=== PATIENT | male | born 1980 | race Caucasian/White ===

== ENCOUNTER 2025-08-14 21:00 | Observation (INO) | payer BC, SELFPAY ==
[2025-08-14] VITALS (30 sets, daily range): BP systolic 131–173; BP diastolic 69–111; PULSE 71–106; RESP 8–21; TEMP 37.2; O2SAT 90–99
--- NOTE | 2025-08-14 21:15 | DI.CT_ITS ---
Exam(s) CT ABDOMEN PELVIS W EXAM: CT ABDOMEN PELVIS W CLINICAL HISTORY: suprapubic pain, hx umbilical hernia. TECHNIQUE: Imaging Protocol: Axial computed tomography images with coronal and sagittal reformatted images were created and reviewed CONTRAST MATERIAL: Intravenous: Omnipaque 350 Contrast volume:100 ml Oral: no COMPARISON: No exams were available for comparison FINDINGS: ABDOMEN and PELVIS: Lung Bases: No acute findings. Liver: Normal density. No suspicious mass. Gallbladder and biliary tract: No radiodense calculus. No wall thickening or pericholecystic fluid. No biliary dilation. Pancreas: Normal density. No abnormal calcifications or inflammatory process. No evidence of mass. Spleen: Normal. Kidneys: Normal size, contour and axis. No radiodense stones. No obstructive uropathy. No suspicious masses seen. Adrenal glands: No masses seen. Vasculature: Abdominal aorta non-dilated. Soft tissues: Small fat containing hernia just superior to the umbilicus. Bilateral fat containing inguinal hernias, right greater than left. Bladder: No gross wall thickening. No calculi.No focal mass. Bowel: Diverticulosis in the sigmoid. Marked wall thickening and inflammation. There is an adjacent collection measuring 4 x 5 x 5 cm consistent with perforation and abscess formation. The right-sided and transverse colon contains some fluid could indicate diarrhea. No obstruction. Appendix normal. Bones: Unremarkable for age. Reproductive organs: Unremarkable. Lymph nodes: Small small lymph nodes noted in the mesentery consistent with reactive lymph nodes. IMPRESSION:: Sigmoid diverticulitis with perforation and adjacent abscess collection. The preliminary [facility] report was reviewed. RADIATION DOSE DELIVERED: Total DLP DATA REPOSITORY: All CT scans at this facility are submitted to the National Radiology Data Registry (NRDR) Dose Index Registry (DIR) with the [employer] (ACR). RADIATION OPTIMIZATION: All CT scans at this facility use at least one of these dose optimization techniques: automated exposure control; mA and/or kV adjustment per patient size (includes targeted exams where dose is matched to clinical indication); or iterative reconstruction.
--- NOTE | 2025-08-14 21:24 | ED.GENADUL_ITS ---
Discharge Plan Disposition Patient Disposition: Admit to [facility] Condition: Stable Discharge Details Clinical Impression: Perforation of sigmoid colon due to diverticulitis Primary Care Provider: Briseyda Riggs ED Provider: Subha Goodwin Home Meds and New Rx's Prescriptions: No Action multivitamin Tablet 1 tab PO DAILY [facility] General Mode of arrival: ambulatory . Date/Time Provider Initiated Documentation: 08/14/25 21:01 . Limitations to Documentation: no limitations . Information obtained by: patient, family and old records reviewed . HPI Narrative: This is a 44-year-old male patient with a past medical history significant for ORA and umbilical hernia, scheduled for surgical intervention on Saturday, presenting for evaluation of abdominal pain. The patient reports that he had his preop visit with the surgery team on , has had some intermittent abdominal pain before that but on his pain became much worse. He states that it is located in the suprapubic region and does not radiate. His hernia remains easily reducible, but is uncomfortable. He has been able to pass stool but has some severe cramping pain when he strains. Has nausea but no vomiting, has taken Tylenol which takes the edge off of the pain but does not relieve it entirely. He has no personal history of abdominal surgeries, states that he is beginning to develop some mild dysuria. Denies fevers or chills, denies abdominal wall skin changes. Related Data Home Medications ?Medication ?Instructions ?Recorded ?Confirmed multivitamin 1 tab PO DAILY 08/12/2507/20 Allergies Allergy/AdvReac Type Severity Reaction Status Date / Time No Known Allergies Allergy Verified 08/14/25 21:05 General Stated Complaint: Abd Prob DEVIKA: 3 Exam Narrative Exam Narrative: Gen: Awake and alert, in no apparent distress HEENT: Non-icteric sclera Neck: Supple Lungs: No apparent respiratory distress, normal respiratory effort. CV: Appears well perfused, heart with regular rate and rhythm, strong distal pulses Abdomen: Non-distended, soft, tender to palpation in the suprapubic region, though not significantly worsened with palpation. No rigidity, rebound, or guarding. The umbilical hernia is currently reduced, no overlying skin changes, mildly tender to palpation MSK: Moves 4 extremities without apparent limitation in ROM Skin: Visualized skin without rashes, cyanosis. Neuro: Normal Gait, no obvious focal deficits or facial asymmetry. Speaks in full, clear sentences. Psych: Appropriate for situation. Course Vital Signs Vital signs: Vital Signs Temperature 37.2 C 08/14/25 21:06 Pulse 106 H 08/14/25 21:06 Respiratory Rate 20 08/14/25 21:06 Blood Pressure 133/89 08/14/25 21:06 Pulse Oximetry 97 08/14/25 21:06 Temperature 37.2 C 08/14/25 21:12 Temperature Source Oral 08/14/25 21:12 Pulse 106 H 08/14/25 21:12 Respiratory Rate 20 08/14/25 21:12 Blood Pressure 133/89 08/14/25 21:12 Blood Pressure Position Sitting 08/14/25 21:12 Pulse Oximetry 97 08/14/25 21:12 Oxygen Delivery Method Room Air 08/14/25 21:12 Oxygen Flow Rate 0 08/14/25 21:12 Pain Level 7 08/14/25 21:12 Medical Decision Making This is a 44-year-old male patient presenting for evaluation of abdominal pain with nausea. My differential includes, but is not limited to hernia related issues including incarceration or strangulation, though the patient's exam is quite reassuring. Considered urinary pathology including UTI, nephrolithiasis. Other considerations include gastritis/PUD, gastroenteritis, pancreatitis, cholecystitis and gallbladder pathology, hepatitis, appendicitis, diverticulitis, small bowel obstruction. Considered mesenteric ischemia, aortic pathology, though this is less concerning based on the patient's history and physical exam. We will obtain labs to include CBC, CMP, magnesium, lipase, and lactate. I will obtain a urinalysis, provide the patient with Dilaudid and Zofran for symptomatic management, and obtain a CT abdomen pelvis with contrast. - I reviewed the patient's laboratory studies, which shows a leukocytosis to 16.5, but no anemia or thrombocytopenia. Chemistry panel reveals no significant electrolyte derangements, evidence of kidney or liver dysfunction, lipase is low. Urinalysis noninfectious and the lactate was not significantly elevated. I independently reviewed the patient CT scan and discussed the results with the radiologist. The patient has evidence of a perforated rated diverticulitis of the sigmoid colon, subacute in appearance and with associated developing abscess. For this reason I provided the patient with Zosyn, and discussed the case with Dr. Gay of general surgery who will admit the patient for ongoing management. The patient remained hemodynamically appropriate while under my care in the ER, was transferred to the general surgery service without incident. Subha Goodwin MD PFSH All Active Problems (Updated 08/14/25 @ 23:42 by Subha Goodwin MD) Perforation of sigmoid colon due to diverticulitis (Acute) ORA (obstructive sleep apnea) (Chronic) Umbilical hernia (Acute) Medical History (Updated 08/14/25 @ 23:42 by Subha Goodwin MD) GERD (gastroesophageal reflux disease) Essential hypertension Surgical History (Updated 08/12/25 @ 14:02 by Marcus Serrano) Hx of wisdom tooth extraction Social History Smoking/Tobacco Use Status: Former Tobacco Use Quit Date: 11/18/18 Smoking risk assessment performed?: Yes Alcohol Intake: current Alcohol Intake frequency: a few times a week Drug use: Daily Substance use type: marijuana Housing: house Do you feel safe at home: Yes Do you feel safe in your relationship?: Yes
[2025-08-14 21:41] LABS: Abs Immature Grans 0.13 10^3/uL (0.0-0.06); HCT 43.3 % (40.0-50.0); HGB 14.9 g/dL (13.5-17.5); Immature Grans % 0.8 %; MCH 28.9 pg (27.0-33.0); MCHC 34.4 % (32.0-36.0); MCV 84 fL (80-95); MPV 9.0 fL (8.0-11.0); Platelet Count 276 10^3/uL (130-400); RBC 5.16 10^6/uL (4.36-5.78); RDW 11.9 % (11.8-14.1); RDW-SD 36.4 fL; WBC 16.53 10^3/uL (4.4-10.8)
[2025-08-14] MEDS: HYDROmorphone 2 MG/ML SYR 0.5 MG IVP (21:46)
[2025-08-14] MEDS: Ondansetron 4 MG/2 ML VIAL IVP ×2 (21:49→23:32)
[2025-08-14 21:56] LABS: RBC Morphology Normal
[2025-08-14 21:59] LABS: ALT 26 U/L (16-63); AST 10 U/L (15-37); Albumin 3.5 g/dL (3.4-5.0); Alkaline Phosphatase 72 U/L (46-116); Anion Gap 10.5 mmol/L (3-11); BUN 10 mg/dL (7-18); Bilirubin, Total 0.5 mg/dL (0.2-1.0); CO2 26.5 mmol/L (21.0-32.0); Calcium 9.1 mg/dL (8.5-10.1); Chloride 97 mmol/L (98-107); Estimated GFR 84.37 (mL/min/1.73m2); Glucose 154 mg/dL (74-106); Lipase 26 U/L (<78); Magnesium 1.9 mg/dL (1.8-2.4); Potassium 3.9 mmol/L (3.5-5.1); Sodium 134 mmol/L (136-145); Total Protein 7.9 g/dL (6.4-8.2)
[2025-08-14] MEDS: Omnipaque 350 MG/ML 100 ML BTL IJ (22:05)
[2025-08-14] MEDS: Normal Saline - Diluent 50 ML VIAL IJ (22:05)
[2025-08-14 22:39] LABS: Glucose Negative (Negative)
--- NOTE | 2025-08-14 23:23 | DI.[facility]_ITS ---
Addendum created by Andrew Farah MD on 08/14/2025 11:25:03 PM EDT: This case was discussed personally with Subha Giang at 11:24 PM EDT on 08/14/2025. Initial report created on 08/14/2025 11:23:06 PM EDT: PROCEDURE INFORMATION: Exam: CT Abdomen And Pelvis With Contrast Exam date and time: 08/14/2025 9:56 PM Age: 44 years old Clinical indication: Other: Suprapubic pain, HX umbilical hernia TECHNIQUE: Imaging protocol: Computed tomography of the abdomen and pelvis with contrast. Contrast material: 350; Contrast volume: 100 ml; Contrast route: INTRAVENOUS (IV); COMPARISON: No relevant prior studies available. FINDINGS: Lungs: Lung bases clear. Liver: Normal appearing liver. Gallbladder and biliary ducts: Moderate gallbladder distention. No calcified gallstones or biliary dilatation. Pancreas: Normal appearing pancreas. Spleen: Normal appearing spleen. Adrenal glands: Normal appearing adrenal glands. Kidneys and ureters: Normal appearing kidneys. No hydronephrosis. No obstructing ureteral stones. Stomach and bowel: No oral contrast. Stomach partially decompressed. No small bowel dilatation to suggest obstruction. Colon almost completely evacuated of formed fecal material. Fluid throughout the colon in keeping with diarrhea. Scattered colonic diverticula. Mural thickening through the mid sigmoid colon with a contiguous 3.9 cm x 4.8 cm x 5.0 cm collection of fluid and gas in the central pelvic mesentery with surrounding hazy fat stranding. Appendix: Suggestion of a possible ghostlike diminutive appendix, not well demonstrated. No gross pericecal inflammatory change. Intraperitoneal space: 3.9 cm x 4.8 cm x 5.0 cm collection of fluid and gas in the central pelvic mesentery with surrounding hazy fat stranding. Trace free fluid in the deep pelvis. No free air seen in the upper abdomen. Vasculature: Normal caliber abdominal aorta. Lymph nodes: No pathologically enlarged mesenteric, retroperitoneal, or pelvic sidewall lymph nodes. Urinary bladder: Urinary bladder partially collapsed but grossly unremarkable, as seen. Reproductive: Normal-sized prostate gland and seminal vesicles. Coarse prostate calcifications. Bones/joints: No acute fracture seen among the bones of the abdomen or pelvis. Prominent discogenic degeneration at the lumbosacral junction. Soft tissues: 2.5 cm x 4.0 cm x 3.5 cm fat containing ventral hernia at the umbilicus. Small fat containing bilateral inguinal region hernias. IMPRESSION: 1. Scattered colonic diverticula. Mural thickening through the mid sigmoid colon with a contiguous 3.9 cm x 4.8 cm x 5.0 cm collection of fluid and gas in the central pelvic mesentery and surrounding hazy fat stranding. Subacute perforated sigmoid diverticulitis with a developing mesenteric abscess is suggested. 2. Fluid throughout the colon in keeping with diarrhea. Dictated and Authenticated by: Andrew Farah MD. Orderin [facility]. Sudheer Mascorro MD
[2025-08-14] MEDS: HYDROmorphone 2 MG/ML SYR 1 MG IVP (23:33)
[2025-08-14] MEDS: PIPERACILLIN/TAZO 4.5 GM in Normal Saline 100 ML IVPB (23:54)
[2025-08-15] VITALS (10 sets, daily range): BP systolic 118–146; BP diastolic 73–93; PULSE 68–97; RESP 14–22; TEMP 36.7–37.4; O2SAT 88–99
--- NOTE | 2025-08-15 00:18 | W.PC.ACHO ---
Registration Status: REG ER Primary Language: Preferred Language: ED Information & Data Chief Complaint Abd Prob 08/14/25 21:26 Triage Note Pt reports abdominal pain 08/14/25 21:06 that has been ongoing for the last 30 days. Pain is constant, has not been able to eat. Has some nausea, no vomiting. Reports LBM 1400 this morning. Crampy, sharp pain, reports it can be excruciating at times. 1 gram of Tylenol at 1900. No urinary symptoms. Has known umbilical hernia, able to push back in, located above navel. This pain is hypogastric. Pt of Dr. Gay , told him to come here. Medical / Surgical History (Last Reviewed 08/12/25 @ 14:02 by Marcus Serrano) GERD (gastroesophageal reflux disease) Essential hypertension (Last Updated 08/12/25 @ 14:02 by Marcus Serrano) Hx of wisdom tooth extraction Most Recent Vital Signs Temperature 37.2 C 08/14/25 21:12 Temperature Source Oral 08/14/25 21:12 Pulse 82 08/15/25 00:08 Pulse Rhythm Regular 08/15/25 00:08 Pulse Strength Normal 08/15/25 00:08 Respiratory Rate 16 08/15/25 00:08 Respiratory Effort Normal 08/15/25 00:08 Respiratory Depth Normal 08/15/25 00:08 Respiratory Pattern Normal 08/15/25 00:08 Blood Pressure 132/77 08/15/25 00:08 Blood Pressure Mean 95 08/15/25 00:08 Blood Pressure Position Supine 08/15/25 00:08 Pulse Oximetry 99 08/15/25 00:08 Oxygen Delivery Method Room Air 08/15/25 00:08 Oxygen Flow Rate 0 08/15/25 00:08 Pain Level 0 08/15/25 00:08 Allergies No Known Allergies Allergy (Verified 08/14/25 21:05) Active Medications Generic Name Dose Route Start Last Admin Trade Name Freq PRN Reason Stop Dose Admin Iohexol 100 ml 08/14/25 22:15 08/14/25 22:05 Omnipaque 350 Mg/Ml 100 Ml Btl IJ 09/13/25 23:59 100 ml DIRECTED MARINA Administration Sodium Chloride 50 ml 08/14/25 22:15 08/14/25 22:05 Normal Saline - Diluent 50 Ml Vial IJ 50 ml DIRECTED MARINA Administration IV IV Catheter Type [Left Wrist] Saline Lock IV Catheter Gauge [Left Wrist] 18 Diagnostics 08/15/25 08/14/25 08/14/25 Range/Units Unknown 21:39 21:32 WBC Pending 16.53 H (4.4-10.8) 10^3/uL RBC Pending 5.16 (4.36-5.78) 10^6/uL Hgb Pending 14.9 (13.5-17.5) g/dL Hct Pending 43.3 (40.0-50.0) % MCV Pending 84 (80-95) fL MCH Pending 28.9 (27.0-33.0) pg MCHC Pending 34.4 (32.0-36.0) % RDW Pending 11.9 (11.8-14.1) % Plt Count Pending 276 (130-400) 10^3/uL MPV Pending 9.0 (8.0-11.0) fL Immature Gran % Pending 0.8 % Neutrophils % Pending 78.0 % Lymphocytes % Pending 10.1 % Monocytes % Pending 9.9 % Eosinophils % Pending 0.8 % Basophils % Pending 0.4 % Nucleated RBC % 0.0 (0.0-0.3) % Absolute Neutrophils Pending 12.89 H (1.2-6.7) 10^3/uL Absolute Lymphocytes Pending 1.67 (1.2-3.4) 10^3/uL Absolute Monocytes Pending 1.64 H (0.1-0.8) 10^3/uL Absolute Eosinophils Pending 0.13 (0.0-0.7) 10^3/uL Absolute Basophils Pending 0.07 (0.0-0.2) 10^3/uL RBC Morphology Normal VBG Lactate 1.9 (<or=2.0) mmol/L Sodium 134 L (136-145) mmol/L Potassium 3.9 (3.5-5.1) mmol/L Chloride 97 L (98-107) mmol/L Carbon Dioxide 26.5 (21.0-32.0) mmol/L Anion Gap 10.5 (3-11) mmol/L BUN 10 (7-18) mg/dL Creatinine 1.1 (0.70-1.30) mg/dL Est GFR (CKD-EPI 2020) 84.37 (mL/min/1.73m2) Glucose 154 H (74-106) mg/dL Calcium 9.1 (8.5-10.1) mg/dL Magnesium 1.9 (1.8-2.4) mg/dL Total Bilirubin 0.5 (0.2-1.0) mg/dL AST 10 L (15-37) U/L ALT 26 (16-63) U/L Alkaline Phosphatase 72 (46-116) U/L Total Protein 7.9 (6.4-8.2) g/dL Albumin 3.5 (3.4-5.0) g/dL Lipase 26 (<78) U/L Urine Color Yellow (Yellow) Urine Clarity Clear (Clear) Urine pH 6.5 (5-8) Ur Specific Angie 1.010 (1.005-1.025) Urine Protein Negative (Neg-Trace) mg/dL Urine Ketones Negative (Negative) mg/dL Urine Blood Negative (Negative) Urine Nitrite Negative (Negative) Urine Bilirubin Negative (Negative) Urine Urobilinogen 0.2 (Up to 0.2) mg/dL Ur Leukocyte Esterase Negative (Negative) Urine Glucose Negative (Negative) mg/dL Intake and Output - 24 Hour Total 08/14/25 21:00 thru 08/14/25 21:06 Weight 102.058 kg Falls Risk Assessment History of Falls No History 08/14/25 21:57 Contributing Factors No Factors 08/14/25 21:57 Ambulatory Aids Independent 08/14/25 21:57 Tubes/Lines None 08/14/25 21:57 Gait Evaluation No gait disturbance 08/14/25 21:57 Cognition No cognitive impairment 08/14/25 21:57 Fall Total Score 0 08/14/25 21:57 Level of Risk Standard/Low Risk 08/14/25 21:57 v v v v v v v v v Sending and/or Receiving Nurses: Please use comment section below to note any information pertinent to the patient hand-off not included above. Information / Comments: Pt coming in for observation on surgical service for perforated diverticulitis. A+Ox4, independent. Report received from: Lucas Naqvi RN
[2025-08-15] MEDS: Normal Saline Flush 10 ML SYR IVP ×4 (01:03→19:24)
[2025-08-15] MEDS: Lactated Ringers 1,000 ML 75 ML IV (01:03)
[2025-08-15] MEDS: ACETAMINOPHEN 1,000 MG/100 ML BAG 400 MG IVPB ×4 (01:27→19:24)
[2025-08-15] MEDS: Ondansetron 4 MG/2 ML VIAL IVP (03:23)
[2025-08-15] MEDS: Ketorolac 15 MG/ML VIAL IVP (03:27)
[2025-08-15] MEDS: PIPERACILLIN/TAZO 3.375 GM in Normal Saline 50 ML IVPB ×3 (06:14→17:55)
[2025-08-15 07:12] LABS: Abs Immature Grans 0.13 10^3/uL (0.0-0.06); HCT 41.1 % (40.0-50.0); HGB 13.9 g/dL (13.5-17.5); Immature Grans % 0.8 %; MCH 28.7 pg (27.0-33.0); MCHC 33.8 % (32.0-36.0); MCV 85 fL (80-95); MPV 9.2 fL (8.0-11.0); Platelet Count 254 10^3/uL (130-400); RBC 4.84 10^6/uL (4.36-5.78); RDW 12.1 % (11.8-14.1); RDW-SD 37.5 fL; WBC 15.64 10^3/uL (4.4-10.8)
[2025-08-15 07:25] LABS: Anion Gap 8.7 mmol/L (3-11); BUN 11 mg/dL (7-18); CO2 27.3 mmol/L (21.0-32.0); Calcium 9.0 mg/dL (8.5-10.1); Chloride 101 mmol/L (98-107); Estimated GFR 84.37 (mL/min/1.73m2); Glucose 104 mg/dL (74-106); Potassium 3.9 mmol/L (3.5-5.1); Sodium 137 mmol/L (136-145)
[2025-08-15] MEDS: Enoxaparin 40 MG/0.4 ML SYR SC (08:07)
--- NOTE | 2025-08-15 09:00 | PDOC.CMIN ---
Date of service: 08/15/25 Time of Service: 09:00 Care Management Initial Assmt Initial Assessment Reason for Hospitalization: Perforated diverticulitis Functional Status/Living Situation Patient Presentation: Saad (who prefers to go by Dieter) was awake and lying in bed when CM met with him. He presented to the Emergency Department for evaluation of abdominal pain. Dieter and his , Radha, were both pleasant and willing to engage in conversation. Dieter reported he is scheduled for a hernia repair surgery on Saturday with Dr. Acosta, which he anticipates will be postponed due to this admission. Dieter shares he resides in [place] with Radha. Both Dieter and Radha are employed, independent at baseline, and drive. Dieter requested a work note to be provided prior to discharge. He reported that he is not currently utilizing any community services and does not feel he has a need for them at this time. CM will continue to follow. Town of Residence: [place] Resides with: Spouse (Radha - surgery aid) Significant Other/Family: Local Natural Supports: family, friends Employment Status: Employed Instrumental Activities of Daily Living (ADLs): Independent Medications Medication Management: No Issues/Barriers identified Physical Functioning/Mobility Assistive Device: none Advance Directives Advance Directives: Do you have an Advance Directive: N 08/13/25, 10:[address] [facility]: N 08/13/25, 10:32 Date Asked 08/14/25 08/14/25, 21:02 AD Date Reviewed COLST On File at [facility] No 08/14/25, 21:02 COLST Date Scanned Code Status Resuscitation Status Full Code Portal Pt does not currently have a portal and education provided: Yes Insurance Coverage/Financial Issues Insurance: BC/BS of [facility] - [id number] Care Team Visit Care Team Role Provider Type Briseyda Riggs Primary Care Provider NON-[facility] STAFF PHYSICIAN Subha Goodwin MD Emergency Provider [facility] STAFF PHYSICIAN Bassem Gay MD Admit Provider [facility] STAFF PHYSICIAN Attending Provider Discharge Potential Discharge Needs: PCP F/U Appt and Surgical F/U Appt Anticipated Barriers to Discharge: None Identified Patient/Family Education Needs: Review discharge instructions, discuss Ask Me Three Transportation: Private vehicle Plan: Anticipate Dieter will be discharged home once medically ready. No new services are indicated at this time. It is recommended that Dieter follow up with his community providers, surgical team and continue per his discharge plan of care. Dieter will require a work note prior to d/c. He will be transported via private vehicle by his . CM will follow. Social Determinants of Health Screening Social Determinants of health last assessed in clinic: 08/15/25 Will the Patient Participate in the Screening?: Yes Do you worry about having a steady place to live?: no Problems where you live: no known problems In the past 12 months, have you had to go without electric, gas, oil or water in your home?: no 1. Within the past 12 months, we worried whether our food would run out before we got money to buy more.: Don't know/refused 2. Within the past 12 months, the food we bought just didn't last and we didn't have money to get more.: Don't know/refused Has lack of transportation kept you from medical appointments or from doing things needed for daily living?: no Has anyone in your life made you feel unsafe or unsupported?: no How hard is it for you to pay for the very basics like food, housing, medical care, and heating? Would you say it is:: Not hard at all Do you want help finding or keeping work or a job?: I do not need or want help If for any reason you need help with day-to-day activities such as bathing, preparing meals, shopping, managing finances, etc., do you get the help you need?: I don?t need any help How often do you feel lonely or isolated from those around you?: Never Do you speak a language other than [place] at home?: No Does the patient want assistance with any of the above?: No PFSH All Active Problems (Updated 08/14/25 @ 23:42 by Subha Goodwin MD) Perforation of sigmoid colon due to diverticulitis (Acute) ORA (obstructive sleep apnea) (Chronic) Umbilical hernia (Acute) Medical History (Updated 08/14/25 @ 23:42 by Subha Goodwin MD) GERD (gastroesophageal reflux disease) Essential hypertension Surgical History (Updated 08/12/25 @ 14:02 by Marcus Serrano) Hx of wisdom tooth extraction Social History Smoking/Tobacco Use Status: Former Tobacco Use Quit Date: 11/18/18 Smoking risk assessment performed?: Yes Alcohol Intake: current Alcohol Intake frequency: a few times a week Drug use: Daily Substance use type: marijuana Housing: house Do you feel safe at home: Yes Do you feel safe in your relationship?: Yes Readmission Within the Past 30 Days Yes or No: No
--- NOTE | 2025-08-15 09:02 | W.PM.HP.N ---
Date of service: 08/15/25 Time of Service: 09:02 Assessment and Plan Assessment and plan (1) Perforation of sigmoid colon due to diverticulitis: Status: Acute Assessment and plan: Saad has a fairly significant perforation of the sigmoid segment, although it does appear confined to the sigmoid mesentery. Thus far, his vital signs have been reassuring, and his leukocytosis is mildly improved with ongoing Zosyn therapy. Given the exam today, I think it is reasonable to advance his diet a little bit. I will continue some MiraLAX to help with symptoms. We talked about the natural history of diverticulitis, and although I am optimistic with regards to his symptomatology, certainly the nature of this by imaging raises concerns for interval abscess evolution. Will repeat the labs tomorrow, and see how his exam evolves. If there is any change in his hemodynamics, or his symptoms, then a short interval repeat CT scan to rule out an abscess is very reasonable. We talked about the role of percutaneous drainage if that were to occur, as well as the role of emergency surgery for free perforation or worsening sepsis. Obviously, we will have to cancel his elective umbilical hernia repair at this point. But that can always be readdressed in the near future. History of Present Illness History of Present Illness Chief Complaint: abdominal pain Narrative: Saad is 44 years old. He has a known umbilical hernia, was actually scheduled for elective umbilical hernia repair tomorrow morning. Yesterday, however, he experienced worsening abdominal pain. He tells me it started about 24 to 48 hours prior to that. Was in the lower middle portion of his abdomen, and was initially a crampy stabbing sensation that was associated with bowel movements. He felt bloated. He tried some MiraLAX, and the pain got worse. With worsening symptoms, he came to the emergency department last night. He had a leukocytosis around 16,000, and underwent a CAT scan of the abdomen and pelvis that demonstrated perforated sigmoid diverticulitis. He has never had a colonoscopy before. He denies any significant family history of colon or rectal cancers Review of Systems Constitutional Constitutional: Reports fatigue, Denies fever(s) and Reports lethargy Eyes Eyes: Reports system reviewed and no additional complaints, except as documented ENT Ears, Nose, Mouth, and Throat: Reports system reviewed and no additional complaints, except as documented Cardiovascular Cardiovascular: Denies chest pain and Denies dyspnea Respiratory Respiratory: Denies chest congestion, Denies cough and Denies dyspnea Gastrointestinal Gastrointestinal: Reports abdominal pain, Reports bloating, Reports cramping, Denies nausea and Denies vomiting Genitourinary Genitourinary: Reports system reviewed and no additional complaints, except as documented Musculoskeletal Musculoskeletal: Reports system reviewed and no additional complaints, except as documented Endocrine Endocrine: Reports fatigue Hematologic/Lymphatic Hematologic/Lymphatic: Denies easy bleeding and Denies easy bruising PFSH All Active Problems (Updated 08/14/25 @ 23:42 by Subha Goodwin MD) Perforation of sigmoid colon due to diverticulitis (Acute) ORA (obstructive sleep apnea) (Chronic) Umbilical hernia (Acute) Medical History (Updated 08/14/25 @ 23:42 by Subha Goodwin MD) GERD (gastroesophageal reflux disease) Essential hypertension Surgical History (Updated 08/12/25 @ 14:02 by Marcus Serrano) Hx of wisdom tooth extraction Social History Smoking/Tobacco Use Status: Former Tobacco Use Quit Date: 11/18/18 Smoking risk assessment performed?: Yes Alcohol Intake: current Alcohol Intake frequency: a few times a week Drug use: Daily Substance use type: marijuana Housing: house Do you feel safe at home: Yes Do you feel safe in your relationship?: Yes Meds Allergies and Home Medications Allergies Allergy/AdvReac Type Severity Reaction Status Date / Time No Known Allergies Allergy Verified 08/14/25 21:05 Home Medications ?Medication ?Instructions ?Recorded ?Confirmed ?Type multivitamin 1 tab PO DAILY 08/12/25 08/14/25 History Exam Const General: cooperative, comfortable and no acute distress Orientation: alert, awake and oriented x3 HENMT Head: normal to inspection Eyes General: appearance normal, both eyes and all related structures Neck Neck: normal visual inspection, full ROM and no lymphadenopathy Resp Effort & Inspection: normal respiratory effort and able to speak in complete sentences Auscultation: clear to auscultation bilaterally Cardio Rate: regular rate Rhythm: regular rhythm Heart Sounds: S1 normal and S2 normal GI Inspection: normal to inspection and non-distended Palpation: soft, no guarding and hernia (Reducible umbilical) Auscultation: normal bowel sounds Other: Suprapubic tenderness with deep palpation Results Imaging Abdomen CT scan report/results: report reviewed and image reviewed CT scan - pelvis: report reviewed and image reviewed Labs 08/15/25 06:12 08/15/25 06:12 Labs: Laboratory Results - last 24 hr 08/14/25 08/14/25 08/15/25 21:32 21:39 06:12 WBC 16.53 H 15.64 H RBC 5.16 4.84 Hgb 14.9 13.9 Hct 43.3 41.1 MCV 84 85 MCH 28.9 28.7 MCHC 34.4 33.8 RDW 11.9 12.1 Plt Count 276 254 MPV 9.0 9.2 Immature Gran % 0.8 0.8 Neutrophils % 78.0 74.9 Lymphocytes % 10.1 10.9 Monocytes % 9.9 12.1 Eosinophils % 0.8 0.9 Basophils % 0.4 0.4 Nucleated RBC % 0.0 0.0 Absolute Neutrophils 12.89 H 11.71 H Absolute Lymphocytes 1.67 1.70 Absolute Monocytes 1.64 H 1.89 H Absolute Eosinophils 0.13 0.14 Absolute Basophils 0.07 0.06 RBC Morphology Normal VBG Lactate 1.9 Sodium 134 L 137 Potassium 3.9 3.9 Chloride 97 L 101 Carbon Dioxide 26.5 27.3 Anion Gap 10.5 8.7 BUN 10 11 Creatinine 1.1 1.1 Est GFR (CKD-EPI 2020) 84.37 84.37 Glucose 154 H 104 Calcium 9.1 9.0 Magnesium 1.9 Total Bilirubin 0.5 AST 10 L ALT 26 Alkaline Phosphatase 72 Total Protein 7.9 Albumin 3.5 Lipase 26 Urine Color Yellow Urine Clarity Clear Urine pH 6.5 Ur Specific [place] 1.010 Urine Protein Negative Urine Ketones Negative Urine Blood Negative Urine Nitrite Negative Urine Bilirubin Negative Urine Urobilinogen 0.2 Ur Leukocyte Esterase Negative Urine Glucose Negative Last Vital Signs Temp 98.4 F 08/15/25 06:53 Pulse 85 08/15/25 06:53 Resp 16 08/15/25 06:53 BP 131/78 08/15/25 06:53 Pulse Ox 95 08/15/25 06:53 PAWSS Have you Been Recently Intoxicated or Drunk Within the Last 30 days?: No Have you Ever Experienced Previous Episodes of Alcohol Withdrawal?: No Have you ever Experienced Withdrawal Seizures?: No Have you ever Experienced Delirium Tremens(DT)s?: No Have you ever undergone Alcohol Rehabilitation Treatment (i.e, inpt ot outpatient treatment programs)?: No Have you ever Experienced Blackouts?: No Have you ever Combined Alcohol with other Downers within the last 90 days?: No Have you ever Combined Alcohol with any other Substance of Abuse during the last 90 days?: No Positive Blood Alcohol level on Presentation? [PCS.BAL]: No Evidence of Increased Autonomic Activity (i.e. HR>120, tremor, sweating, agitation, nausea)?: No Result: 0 Time Spent Time spent with Patient: 55-74 minutes Time was spent: preparing to see the patient(eg.review tests), obtaining and/or reviewing separately otained hiistory, ordering medications,tests, procedures, indepentently interpreting results, counseling the patient and care coordination
[2025-08-15] MEDS: Polyethylene Glycol 3350 17 GM PACKET PO (19:23)
[2025-08-16] MEDS: Normal Saline Flush 10 ML SYR IVP ×2 (01:10→09:32)
[2025-08-16] MEDS: PIPERACILLIN/TAZO 3.375 GM in Normal Saline 50 ML IVPB ×2 (01:11→06:17)
[2025-08-16] MEDS: ACETAMINOPHEN 1,000 MG/100 ML BAG 400 MG IVPB (02:10)
[2025-08-16 06:41] LABS: HCT 41.8 % (40.0-50.0); HGB 14.1 g/dL (13.5-17.5); MCH 29.0 pg (27.0-33.0); MCHC 33.7 % (32.0-36.0); MCV 86 fL (80-95); MPV 9.3 fL (8.0-11.0); Platelet Count 246 10^3/uL (130-400); RBC 4.87 10^6/uL (4.36-5.78); RDW 12.1 % (11.8-14.1); RDW-SD 38.1 fL; WBC 7.81 10^3/uL (4.4-10.8)
[2025-08-16 08:14] VITALS: BP 137/86; PULSE 86; RESP 17; TEMP 36.6; O2SAT 96
--- NOTE | 2025-08-16 08:38 | W.PM.PROGNOT ---
Date of Service Date of service: 08/16/25 Time of Service: 08:38 Assessment and Plan Assessment and plan (1) Perforation of sigmoid colon due to diverticulitis: Status: Acute Assessment and plan: Patient is a 44-year-old male who was admitted to the general surgery service with perforated diverticulitis. Given his stability on presentation and imaging findings he was treated nonoperatively with antibiotics. His diet was advanced yesterday and he has remained on IV antibiotics. This morning he reports he is doing well. He denies any abdominal pain, nausea, vomiting, fevers, chills. He tolerated regular diet yesterday. He has had a bowel movement without difficulty. On exam he is afebrile and hemodynamically stable. His abdomen is soft, nondistended, and nontender to palpation. His leukocytosis has resolved this morning. Given his ongoing stability will plan to transition to p.o. antibiotics this morning. Discussed with him that if he is able to tolerate a regular diet today and oral antibiotics he could potentially be discharged later today. Subjective Subjective Interval history since last seen: He states he is doing well this morning. He denies any abdominal pain, nausea, vomiting, fevers, or chills. He states that the cramping abdominal pain that he initially presented with is resolved. He does note that he had a bowel movement which was nonbloody. He was able to tolerate 2 meals yesterday without difficulty. He states that he would like to go home today if able. He otherwise has no complaints. Exam Narrative Exam Narrative: General: Well appearing, no acute distress. Skin: Good turgor, no visible rashes or lesion HEENT: Normocephalic, atraumatic, no visible masses, neck supple CV: Regular rate Lungs: Bilateral equal chest rise, non-labored breathing Abdomen: Soft, non-tender, non-distended Extremities: Warm, well perfused Neurologic: No focal deficits Psychiatric: Alert and oriented, normal mood and affect Objective Last Vital Signs Temp 36.6 C 08/16/25 08:14 Pulse 86 08/16/25 08:14 Resp 17 08/16/25 08:14 BP 137/86 08/16/25 08:14 Pulse Ox 96 08/16/25 08:14 Laboratory Results - last 24 hr 08/16/25 06:26 WBC 7.81 RBC 4.87 Hgb 14.1 Hct 41.8 MCV 86 MCH 29.0 MCHC 33.7 RDW 12.1 Plt Count 246 MPV 9.3 PAWSS Have you Been Recently Intoxicated or Drunk Within the Last 30 days?: No Have you Ever Experienced Previous Episodes of Alcohol Withdrawal?: No Have you ever Experienced Withdrawal Seizures?: No Have you ever Experienced Delirium Tremens(DT)s?: No Have you ever undergone Alcohol Rehabilitation Treatment (i.e, inpt ot outpatient treatment programs)?: No Have you ever Experienced Blackouts?: No Have you ever Combined Alcohol with other Downers within the last 90 days?: No Have you ever Combined Alcohol with any other Substance of Abuse during the last 90 days?: No Positive Blood Alcohol level on Presentation? [PCS.BAL]: No Evidence of Increased Autonomic Activity (i.e. HR>120, tremor, sweating, agitation, nausea)?: No Result: 0 Time Spent with Patient Time Spent with Patient: <25 minutes Time was spent: preparing to see the patient(eg.review tests), obtaining and/or reviewing separately otacritical access hospital hiistory, ordering medications,tests, procedures, indepentently interpreting results and counseling the patient
--- NOTE | 2025-08-16 08:38 | PDOC.CMPRO ---
Date of service: 08/16/25 Time of Service: 08:39 Care Management Progress Note Progress Note Text Progress Note Text: Dieter was sitting up in bed and visiting with his when GENO arrived. Per report, his elective umbilical hernia repair has been canceled but can be rescheduled. Social Determinants of Health Screening Social Determinants of health last assessed in clinic: 08/15/25 Will the Patient Participate in the Screening?: Yes Do you worry about having a steady place to live?: no Problems where you live: no known problems In the past 12 months, have you had to go without electric, gas, oil or water in your home?: no Has lack of transportation kept you from medical appointments or from doing things needed for daily living?: no Has anyone in your life made you feel unsafe or unsupported?: no How hard is it for you to pay for the very basics like food, housing, medical care, and heating? Would you say it is:: Not hard at all Do you want help finding or keeping work or a job?: I do not need or want help If for any reason you need help with day-to-day activities such as bathing, preparing meals, shopping, managing finances, etc., do you get the help you need?: I don?t need any help How often do you feel lonely or isolated from those around you?: Never Do you speak a language other than [place] at home?: No Does the patient want assistance with any of the above?: No
[2025-08-16] MEDS: metroNIDAZOLE 500 MG TAB PO ×2 (09:30→13:09)
[2025-08-16] MEDS: Cefpodoxime 200 MG TAB PO (09:30)
[2025-08-16] MEDS: Polyethylene Glycol 3350 17 GM PACKET PO (09:31)
[2025-08-16] MEDS: Acetaminophen 500 MG TAB 1000 MG PO (09:31)
--- NOTE | 2025-08-16 13:03 | W.PM.DS.N ---
Date of service: 08/16/25 Time of Service: 13:03 DS: Diagnosis Discharge Diagnosis (1) Perforation of sigmoid colon due to diverticulitis: Status: Acute Asessment and Plan: Patient is a 44-year-old male who was admitted to the general surgery service with perforated diverticulitis. Given his stability on presentation and imaging findings he was treated nonoperatively with antibiotics. His diet was advanced yesterday and he has remained on IV antibiotics. This morning he reports he is doing well. He denies any abdominal pain, nausea, vomiting, fevers, chills. He tolerated regular diet yesterday. He has had a bowel movement without difficulty. On exam he is afebrile and hemodynamically stable. His abdomen is soft, nondistended, and nontender to palpation. His leukocytosis has resolved this morning. Given his ongoing stability will plan to transition to p.o. antibiotics this morning. He tolerated transition to PO antibiotics as well as a regular diet throughout the course of the day. Plan for discharge later today. Discharge Plan Disposition Patient Disposition: Home Condition: Good Discharge Details Reason For Visit: Perforated Diverticulitis Admit Date/Time: 08/14/25 23:42 Admit Provider: Bassem Gay Attending Provider: Bassem Gay Primary Care Provider: Briseyda Riggs Hospital Course Hospital Course: Patient is a 44-year-old male who presented to the ED with abdominal pain. He had a further workup which showed acute perforated sigmoid diverticulitis without evidence of free air. He also had evidence of a leukocytosis on presentation. Given his stability and exam on presentation he was admitted for nonoperative management. He was admitted to the general surgery service and continued on antibiotics. The following day his diet was advanced. He had improvement in his leukocytosis and his abdominal pain and resolved. He was transitioned to oral antibiotics and a regular diet which he tolerated well. The following day he was deemed appropriate for discharge home with 2 weeks of antibiotics. At the time of discharge she was urinating appropriately, had returned of bowel function, and had no evidence of abdominal pain on exam. He will follow-up in the general surgery clinic in 3 to 4 weeks. Recommendations for Follow Up Recommended tests to be ordered by follow up provider: None. Home Meds and New Rx's Prescriptions: New cefpodoxime 200 mg Tablet 200 mg PO Q12H PRN14 Days Qty: 28 0RF metronidazole 500 mg Tablet 500 mg PO TID 14 Days Qty: 42 0RF Continued multivitamin Tablet 1 tab PO DAILY Discharge Instructions Instructions: Diverticulitis (DC) Activity:: Activity as Tolerated Equipment/Supplies:: No Equipment Needed Diet:: As Tolerated Discharge Orders Discharge Orders: Discharge Order (Routine); Ordered 08/16/25 Ordered By: Sylvia Chavarria DS: Summary Time Spent with Patient providing and/or coordinating discharge services: Less than 30 minutes Status at Discharge Functional status at discharge: independent ambulation Overall status at discharge: patient is back to baseline Mental Status: mental status grossly normal Speech and Movement: speech and movement normal Mood: congruent mood Affect: normal affect Exam Narrative Exam Narrative: General: Well appearing, no acute distress. Skin: Good turgor, no visible rashes or lesion HEENT: Normocephalic, atraumatic, no visible masses, neck supple CV: Regular rate Lungs: Bilateral equal chest rise, non-labored breathing Abdomen: Soft, non-tender, non-distended Extremities: Warm, well perfused Neurologic: No focal deficits Psychiatric: Alert and oriented, normal mood and affect Psych Mental Status: mental status grossly normal Speech and Movement: speech and movement normal Mood: congruent mood Affect: normal affect DS: Data Vitals/I&O Vitals and I&O: Vital Signs Temperature 36.6 C 08/16/25 08:14 Temperature Source Temporal Artery Scan 08/16/25 08:14 Pulse 86 08/16/25 08:14 Pulse Rhythm Regular 08/15/25 00:32 Pulse Strength Normal 08/15/25 00:08 Pulse 92 H 08/15/25 00:20 Respiratory Rate 17 08/16/25 08:14 Respiratory Effort Normal 08/15/25 00:32 Respiratory Depth Normal 08/15/25 00:32 Respiratory Pattern Normal 08/15/25 00:32 Blood Pressure 137/86 08/16/25 08:14 Blood Pressure Mean 103 08/16/25 08:14 Blood Pressure Position Supine 08/15/25 00:08 Pulse Oximetry 96 08/16/25 08:14 Oxygen Delivery Method Room Air 08/16/25 08:14 Oxygen Flow Rate 0 08/16/25 08:14 Pain Level 2 08/16/25 09:50 Intake & Output 09/28/25 09/29/25 09/29/25 23:59 11:59 23:59 Intake Total 930 / 1770 840 / 840 Balance 930 / 1770 840 / 840 Intake: IV 930 / 1770 200 / 200 Oral 640 / 640 Other: Comment Pt voids independently Stool Size Moderate Moderate Stool Characteristics Liquid Liquid Brown Data Completed and Pending Completed studies during hospitalization [Text1]: CT Abdomen/Pelvis 08/14/2025 IMPRESSION: 1. Scattered colonic diverticula. Mural thickening through the mid sigmoid colon with a contiguous 3.9 cm x 4.8 cm x 5.0 cm collection of fluid and gas in the central pelvic mesentery and surrounding hazy fat stranding. Subacute perforated sigmoid diverticulitis with a developing mesenteric abscess is suggested. 2. Fluid throughout the colon in keeping with diarrhea. Labs on day of discharge: Labs from last 24 hours 08/16/25 06:26 WBC 7.81 RBC 4.87 Hgb 14.1 Hct 41.8 MCV 86 MCH 29.0 MCHC 33.7 RDW 12.1 Plt Count 246 MPV 9.3 PFSH All Active Problems (Updated 08/14/25 @ 23:42 by Subha Goodwin MD) Perforation of sigmoid colon due to diverticulitis (Acute) ORA (obstructive sleep apnea) (Chronic) Umbilical hernia (Acute) Medical History (Updated 08/14/25 @ 23:42 by Subha Goodwin MD) GERD (gastroesophageal reflux disease) Essential hypertension Surgical History (Updated 08/12/25 @ 14:02 by Marcus Serrano) Hx of wisdom tooth extraction Social History Smoking/Tobacco Use Status: Former Tobacco Use Quit Date: 11/18/18 Smoking risk assessment performed?: Yes Alcohol Intake: current Alcohol Intake frequency: a few times a week Drug use: Daily Substance use type: marijuana Housing: house Do you feel safe at home: Yes Do you feel safe in your relationship?: Yes Time Spent with Patient Time Spent with Patient: <45 minutes Time was spent: preparing to see the patient(eg.review tests), obtaining and/or reviewing separately otained hiistory, ordering medications,tests, procedures, indepentently interpreting results and counseling the patient
--- NOTE | 2025-08-16 13:51 | PDOC.CMDIS ---
Date of service: 08/16/25 Time of Service: 13:51 LACE Index Scoring Tool Questions: Length of Stay (in days): 2 Was the patient admitted via the E.D.?: Yes E.D. Visits: 1 Answers: Total Score: 6 Risk of Readmission: Low Risk Care Management Discharge Plan Reason for Hospitalization: Perforated Diverticulitis Discharge Plan: Dieter will be discharged home today. No new services are indicated. It is recommended that Dieter follow up with his community providers, surgical team and continue per his discharge plan of care. Dieter received a work note prior to d/c. He will be transported via private vehicle by his . Patient/Family Education Needs: Review of discharge instructions, activity, limitations and plan of care. Discuss ask me three.
== END 2025-08-16 14:02 | disposition home or self-care (01) ==
LOC: ER 23:50 → MS 08-15 00:29
PROVIDERS: Admitting Provider Surgery; Emergency Provider Emergency Medicine; PCP Internal Medicine; Responsible Provider Surgery; Visit Provider Surgery
DX: K57.20 Diverticulitis of large intestine with perforation and abscess without bleeding (principal); D72.829 Elevated white blood cell count, unspecified; K42.9 Umbilical hernia without obstruction or gangrene; G47.33 Obstructive sleep apnea (adult) (pediatric); K21.9 Gastro-esophageal reflux disease without esophagitis; I10 Essential (primary) hypertension; F12.90 Cannabis use, unspecified, uncomplicated; Z87.891 Personal history of nicotine dependence
CPT/HCPCS: 36415; 80048; 80053; 83690; 85027; 96365; 96366; 96367; 96372; 96375; 96376; 99285; J1650; 74177; 81003; 83605; 83735; 85025; G0378; J0131; J1171; J1885; J2405; J2543; J3490

== ENCOUNTER → 2025-09-16 04:04 | Outpatient (CLI) | payer BC, SELFPAY ==
--- NOTE | 2025-09-16 | DI.CT_ITS ---
Exam(s) CT ABDOMEN PELVIS W EXAM: CT ABDOMEN PELVIS W CLINICAL HISTORY: DIVERTICULITIS TECHNIQUE: Imaging Protocol: Axial computed tomography images with coronal and sagittal reformatted images were created and reviewed. CONTRAST MATERIAL: Intravenous: Omnipaque 350 Contrast volume:100 mL Oral: Yes COMPARISON: CT CT ABDOMEN PELVIS W from 08/14/2025 FINDINGS: ABDOMEN: Lung Bases: There is a 5 mm nodule in the lingula and a 3 mm nodule in the periphery of the left lower lobe. Liver: Normal density. No measurable mass. Portal, Superior Mesenteric, and Splenic Veins: Unremarkable. Gallbladder and Biliary Tract: No radiodense calculus or dilation. Pancreas: Normal density, no abnormal calcifications or inflammatory process. Spleen: Normal. Adrenals: No masses seen. Kidneys: Normal size, contour and axis. No radiodense stones or obstructive uropathy. No masses seen. Abdominal Aorta: Abdominal portion non-dilated. Bowel: There is bowel wall thickening seen in the mid sigmoid colon with pericolonic inflammatory stranding. There are diverticula in the region. The findings are consistent with acute diverticulitis. The findings have improved since the prior examination. There is no evidence of a drainable abscess at this time. There is infiltration of the mesentery superior to the inflamed sigmoid in the region of the previously seen abscess. There are few tiny foci of air within this mesenteric inflammation. (Series 8, image 79). The remainder of the bowel is unremarkable. There is no evidence of appendicitis. There is no evidence of bowel obstruction. Peritoneal Cavity: No ascites, collection or mesenteric inflammatory response. Lymph Nodes: Within normal limits. Bones: Within normal limits for the patient's age. Soft Tissues: There are bilateral inguinal hernias. There is a small fat containing umbilical hernia. PELVIS: Bladder: Symmetric distention, no gross wall thickening. Reproductive Organs: Unremarkable as visualized. Lymph Nodes: Within normal limits. Bones: Within normal limits for the patient's age. IMPRESSION: 1. Acute sigmoid diverticulitis which has shown improvement compared to the prior examination from 08/14/2025. 2. Inflammatory changes are seen in the mesentery adjacent to the involved sigmoid colon but no drainable abscess is seen. 3. There are 2 foci of extraluminal air seen within the inflamed mesenteric changes but no large amount of free air is seen. RADIATION DOSE DELIVERED: 641.3mGy.cm Total DLP DATA REPOSITORY: All CT scans at this facility are submitted to the National Radiology Data Registry (NRDR) Dose Index Registry (DIR) with the [employer] (ACR). RADIATION OPTIMIZATION: All CT scans at this facility use at least one of these dose optimization techniques: automated exposure control; mA and/or kV adjustment per patient size (includes targeted exams where dose is matched to clinical indication); or iterative reconstruction.
[2025-09-16] MEDS: Barium Sulfate 2% W/V-Berry Smoothie 450 ML BTL PO (14:21)
[2025-09-16] MEDS: Omnipaque 350 MG/ML 100 ML BTL IJ (14:22)
[2025-09-16] MEDS: Normal Saline Flush 10 ML SYR IVP (14:22)
[2025-09-16] MEDS: Barium Sulfate 2% W/V-Creamy Vanilla Smoothie 450 ML BTL PO (14:22)
[2025-09-16] MEDS: Normal Saline - Diluent 50 ML VIAL IJ (14:22)
== END ==
LOC: DI 04:04
PROVIDERS: PCP Internal Medicine; Visit Provider Internal Medicine
DX: K57.30 Diverticulosis of large intestine without perforation or abscess without bleeding (principal)
CPT/HCPCS: 74177; J3490

== ENCOUNTER 2025-09-16 15:26 | Inpatient (IN) | payer BC, SELFPAY ==
[2025-09-16 15:58] VITALS: BP 126/84; PULSE 85; RESP 20; TEMP 36.9; O2SAT 95
--- NOTE | 2025-09-16 16:14 | ED.GENADUL_ITS ---
Discharge Plan Disposition Patient Disposition: Admit to [facility] Condition: Stable Discharge Details Clinical Impression: Perforation of sigmoid colon due to diverticulitis Primary Care Provider: Briseyda Riggs ED Provider: Jackson Trevizo Home Meds and New Rx's Prescriptions: No Action multivitamin Tablet 1 tab PO DAILY clindamycin HCl 300 mg capsule 300 mg PO Q12H ciprofloxacin HCl 500 mg tablet 500 mg PO DAILY HPI General Mode of arrival: ambulatory . Date/Time Provider Initiated Documentation: 09/16/25 15:29 . Limitations to Documentation: no limitations . Information obtained by: patient . History of Present Illness 44 year old M presents to the emergency department with the chief complaint of abdominal pain, described as moderate, Quality is described as aching, and is localized to the abdomen. Patient reports no radiation. and it has been intermittent. No relieving factors improve symptom(s), No exacerbating factors reported . Patient notes no other symptoms.. Patient did receive the following treatments prior to arrival, none Related Data Home Medications Medication Instructions Recorded Confirmed multivitamin 1 tab PO DAILY 08/12/2508/20 ciprofloxacin HCl 500 mg tablet 500 mg PO DAILY 09/16/25 clindamycin HCl 300 mg capsule 300 mg PO Q12H 09/16/25 09/16/25 Allergies Allergy/AdvReac Type Severity Reaction Status Date / Time No Known Allergies Allergy Verified 09/16/25 16:02 General Stated Complaint: Abd Prob DEVIKA: 3 Review of Systems All systems reviewed & are unremarkable except as noted in HPI and below Constitutional Constitutional: Denies chills, Denies fever(s) and Denies weakness Cardiovascular Cardiovascular: Denies chest pain and Denies dyspnea Respiratory Respiratory: Denies cough and Denies dyspnea Gastrointestinal Gastrointestinal: Reports abdominal pain, Denies nausea and Denies vomiting Neurologic Neurologic: Denies weakness Exam Const General: no acute distress Orientation: alert HENMT Head: normal to inspection Ears: external ears normal General nose exam: external nose normal Mouth: moist mucous membranes Eyes General: appearance normal, both eyes and all related structures Neck Neck: normal visual inspection Resp Effort & Inspection: normal respiratory effort and able to speak in complete sentences Cardio Rate: regular rate GI Palpation: soft and tender Skin General skin exam: no rashes or lesions noted Neuro General: patient alert and patient oriented x3 Extrem General: normal to inspection Psych Mental Status: mental status grossly normal Course Vital Signs Vital signs: Vital Signs Temperature 36.9 C 09/16/25 15:58 Pulse 85 09/16/25 15:58 Respiratory Rate 20 09/16/25 15:58 Blood Pressure 126/84 09/16/25 15:58 Pulse Oximetry 95 09/16/25 15:58 Temperature 36.9 C 09/16/25 15:58 Temperature Source Oral 09/16/25 15:58 Pulse 85 09/16/25 15:58 Respiratory Rate 20 09/16/25 15:58 Blood Pressure 126/84 09/16/25 15:58 Blood Pressure Position Sitting 09/16/25 15:58 Pulse Oximetry 95 09/16/25 15:58 Oxygen Delivery Method Room Air 09/16/25 15:58 Oxygen Flow Rate 0 09/16/25 15:58 Medical Decision Making 44-year-old male who was admitted in July for perforated diverticulitis treated conservatively and has been on ciprofloxacin for almost a month finishing yesterday and outpatient CT done today which showed continued evidence of diverticulitis and 2 extraluminal areas of air. Patient states she has had intermittent abdominal discomfort especially when waking up in the past month. No severe pain. He has not had any fevers. He is well-appearing and has minimal tenderness in the left lower quadrant, no guarding or rebound. Given the CT finding we will check a CBC and CMP and consult general surgery. Patient stable, Dr. Acosta from general surgery evaluated the patient and recommended IV Zosyn and, keep n.p.o. and admit to the hospitalist and will follow determine if surgical interventions are needed. Discussed with Dr. Washington who will plan to admit the patient. Differential Diagnosis Differential Diagnosis: diverticulitis, perforation Medical Records Medical records reviewed: Yes I reviewed the patient's medical records. Lab Data Lab results reviewed: Yes I reviewed the patient's lab results. PFSH All Active Problems (Updated 09/16/25 @ 17:23 by Jackson Trevizo MD) GERD (gastroesophageal reflux disease) (Chronic) Essential hypertension (Acute) Perforation of sigmoid colon due to diverticulitis (Acute) ORA (obstructive sleep apnea) (Chronic) Umbilical hernia (Acute) Surgical History (Updated 08/12/25 @ 14:02 by Marcus Serrano) Hx of wisdom tooth extraction Social History Smoking/Tobacco Use Status: Former Tobacco Use Quit Date: 11/18/18 Smoking risk assessment performed?: Yes Alcohol Intake: current Alcohol Intake frequency: a few times a week Drug use: Daily Substance use type: marijuana Housing: house Do you feel safe at home: Yes Do you feel safe in your relationship?: Yes
[2025-09-16 16:32] VITALS: BP 126/84; PULSE 85; RESP 20; TEMP 36.9; O2SAT 95
[2025-09-16 16:43] LABS: Abs Immature Grans 0.04 10^3/uL (0.0-0.06); HCT 44.2 % (40.0-50.0); HGB 14.7 g/dL (13.5-17.5); Immature Grans % 0.5 %; MCH 28.5 pg (27.0-33.0); MCHC 33.3 % (32.0-36.0); MCV 86 fL (80-95); MPV 9.2 fL (8.0-11.0); Platelet Count 288 10^3/uL (130-400); RBC 5.16 10^6/uL (4.36-5.78); RDW 12.3 % (11.8-14.1); RDW-SD 38.6 fL; WBC 8.49 10^3/uL (4.4-10.8)
--- NOTE | 2025-09-16 16:44 | W.PM.HP.N ---
Date of service: 09/16/25 Time of Service: 16:44 Assessment and Plan Assessment and plan (1) Perforation of sigmoid colon due to diverticulitis: Status: Acute Assessment and plan: CAT scan shows resolution of previously seen abscess. Case is discussed with and patient seen by general surgery who recommends medical management Patient to be admitted under hospitalist services will continue Zosyn NPO (2) ORA (obstructive sleep apnea): Status: Chronic Assessment and plan: Home CPAP (3) GERD (gastroesophageal reflux disease): Status: Chronic Assessment and plan: GI prophylaxis with pantoprazole (4) Essential hypertension: Status: Acute Assessment and plan: Blood pressures are controlled continue routine monitoring discussed with DR Washington History of Present Illness History of Present Illness Chief Complaint: abd pain Narrative: Ongoing diarrhea and abdominal pain exacerbated by eating Symptoms have not worsened but just not have improved no fever Completed a course of Cipro and Flagyl and symptoms persisted so was placed on Cipro and clindamycin antibiotics completed yesterday Review of Systems All systems reviewed & are unremarkable except as noted in HPI and below PFSH All Active Problems GERD (gastroesophageal reflux disease) (Chronic) Essential hypertension (Acute) Perforation of sigmoid colon due to diverticulitis (Acute) ORA (obstructive sleep apnea) (Chronic) Umbilical hernia (Acute) Surgical History Hx of wisdom tooth extraction Social History Smoking/Tobacco Use Status: Former Tobacco Use Quit Date: 11/18/18 Smoking risk assessment performed?: Yes Alcohol Intake: current Alcohol Intake frequency: a few times a week Drug use: Daily Substance use type: marijuana Housing: house Do you feel safe at home: Yes Do you feel safe in your relationship?: Yes Meds Allergies and Home Medications Allergies Allergy/AdvReac Type Severity Reaction Status Date / Time No Known Allergies Allergy Verified 09/16/25 16:02 Home Medications Medication Instructions Recorded Confirmed Type multivitamin 1 tab PO DAILY 08/12/25 09/16/25 History ciprofloxacin HCl 500 mg tablet 500 mg PO DAILY 09/16/25 09/16/25 History clindamycin HCl 300 mg capsule 300 mg PO Q12H 09/16/25 09/16/25 History Exam Narrative Exam Narrative: Well-appearing male stated age no acute distress head is atraumatic eyes nonicteric noninjected oral mucosas moist neck full range of motion no JVD cardiovascular regular rate and rhythm respirations even and unlabored abdomen is soft nontender no guarding no masses no rebound tenderness moves all extremities equally with no peripheral edema skin is pink warm dry well-perfused nontoxic-appearing neurologic he is awake alert oriented no focal deficits psychiatric appropriate mood and affect Results Labs 09/17/25 06:23 09/17/25 06:23 Last Vital Signs Temp 36.9 C 09/16/25 16:32 Pulse 85 09/16/25 16:32 Resp 20 09/16/25 16:32 BP 126/84 09/16/25 16:32 Pulse Ox 95 09/16/25 16:32 Time Spent Time spent with Patient: 40-54 minutes Time was spent: preparing to see the patient(eg.review tests), obtaining and/or reviewing separately otained hiistory, ordering medications,tests, procedures, indepentently interpreting results and counseling the patient
[2025-09-16 16:58] LABS: ALT 42 U/L (16-63); AST 24 U/L (15-37); Albumin 3.9 g/dL (3.4-5.0); Alkaline Phosphatase 79 U/L (46-116); Anion Gap 8.6 mmol/L (3-11); BUN 11 mg/dL (7-18); Bilirubin, Total 0.4 mg/dL (0.2-1.0); CO2 28.4 mmol/L (21.0-32.0); Calcium 9.7 mg/dL (8.5-10.1); Chloride 100 mmol/L (98-107); Glucose 74 mg/dL (74-106); Magnesium 2.4 mg/dL (1.8-2.4); Potassium 4.0 mmol/L (3.5-5.1); Sodium 137 mmol/L (136-145); Total Protein 8.5 g/dL (6.4-8.2)
[2025-09-16] MEDS: PIPERACILLIN/TAZO 4.5 GM in Normal Saline 100 ML IVPB (17:10)
[2025-09-16] MEDS: Normal Saline 1,000 ML 150 ML IV (18:06)
[2025-09-16 18:13] VITALS: BP 126/94; PULSE 78; O2SAT 99
[2025-09-16 18:40] VITALS: BP 121/83; PULSE 71; RESP 18; TEMP 36.6; O2SAT 98
--- NOTE | 2025-09-16 18:43 | W.PC.ACHO ---
Registration Status: ADM IN Primary Language: Preferred Language: ED Information & Data Chief Complaint Abd Prob 09/16/25 16:33 Chief Complaint Abd Prob 09/16/25 16:18 Triage Note Called back to hospital by 09/16/25 15:[address] results were read. Hx of inflammation in bowels (Updated 08/12/25 @ 14:02 by Marcus Serrano) Hx of wisdom tooth extraction Most Recent Vital Signs Temperature 36.6 C 09/16/25 18:40 Temperature Source Temporal Artery Scan 09/16/25 18:40 Pulse 71 09/16/25 18:40 Respiratory Rate 18 09/16/25 18:40 Blood Pressure 121/83 09/16/25 18:40 Blood Pressure Mean 95 09/16/25 18:40 Blood Pressure Position Sitting 09/16/25 16:32 Pulse Oximetry 98 09/16/25 18:40 Oxygen Delivery Method Room Air 09/16/25 18:40 Oxygen Flow Rate 0 09/16/25 18:40 Allergies No Known Allergies Allergy (Verified 09/16/25 16:02) Precautions Isolation Standard precaution 09/16/25 16:33 Active Medications Generic Name Dose Route Start Last Admin Trade Name Freq PRN Reason Stop Dose Admin Sodium Chloride 1,000 mls @ 150 mls/hr 09/16/25 16:45 09/16/25 18:06 Saline 1000ml Bag IV 150 mls/hr INFUSION MARINA Administration IV IV Catheter Type [Right Saline Lock Forearm] IV Catheter Gauge [Right 18 Forearm] Diet Orders Category Date Time Status npo [Nothing Per Oral] [DIET] Nutrition 09/16/25 18:22 Active Diagnostics 09/16/25 Range/Units 16:29 WBC 8.49 (4.4-10.8) 10^3/uL RBC 5.16 (4.36-5.78) 10^6/uL Hgb 14.7 (13.5-17.5) g/dL Hct 44.2 (40.0-50.0) % MCV 86 (80-95) fL MCH 28.5 (27.0-33.0) pg MCHC 33.3 (32.0-36.0) % RDW 12.3 (11.8-14.1) % Plt Count 288 (130-400) 10^3/uL MPV 9.2 (8.0-11.0) fL Immature Gran % 0.5 % Neutrophils % 58.5 % Lymphocytes % 27.0 % Monocytes % 8.2 % Eosinophils % 5.1 % Basophils % 0.7 % Nucleated RBC % 0.0 (0.0-0.3) % Absolute Neutrophils 4.97 (1.2-6.7) 10^3/uL Absolute Lymphocytes 2.29 (1.2-3.4) 10^3/uL Absolute Monocytes 0.70 (0.1-0.8) 10^3/uL Absolute Eosinophils 0.43 (0.0-0.7) 10^3/uL Absolute Basophils 0.06 (0.0-0.2) 10^3/uL Sodium 137 (136-145) mmol/L Potassium 4.0 (3.5-5.1) mmol/L Chloride 100 (98-107) mmol/L Carbon Dioxide 28.4 (21.0-32.0) mmol/L Anion Gap 8.6 (3-11) mmol/L BUN 11 (7-18) mg/dL Creatinine 1.1 (0.70-1.30) mg/dL Est GFR (CKD-EPI 2020) 84.37 (mL/min/1.73m2) Glucose 74 (74-106) mg/dL Calcium 9.7 (8.5-10.1) mg/dL Magnesium 2.4 (1.8-2.4) mg/dL Total Bilirubin 0.4 (0.2-1.0) mg/dL AST 24 (15-37) U/L ALT 42 (16-63) U/L Alkaline Phosphatase 79 (46-116) U/L Total Protein 8.5 H (6.4-8.2) g/dL Albumin 3.9 (3.4-5.0) g/dL Intake and Output - 24 Hour Total 09/16/25 15:26 thru 09/16/25 17:40 Intake Total 110 Balance 110 Weight 97.976 kg Intake: IV 110 Falls Risk Assessment History of Falls No History 09/16/25 16:33 Contributing Factors No Factors 09/16/25 16:33 Ambulatory Aids Independent 09/16/25 16:33 Tubes/Lines W/no contributing factors 09/16/25 16:33 Gait Evaluation No gait disturbance 09/16/25 16:33 Cognition No cognitive impairment 09/16/25 16:33 Fall Total Score 10 09/16/25 16:33 Level of Risk Standard/Low Risk 09/16/25 16:33 Problems (Updated 09/16/25 @ 17:23 by Jackson Trevizo MD) GERD (gastroesophageal reflux disease) (Chronic) Essential hypertension (Acute) Perforation of sigmoid colon due to diverticulitis (Acute) ORA (obstructive sleep apnea) (Chronic) v v v v v v v v v Sending and/or Receiving Nurses: Please use comment section below to note any information pertinent to the patient hand-off not included above. Information / Comments: pt arrived to the unit at 18:35. On RA. NS running at 150ml/hr. Pt stated he is in 0/10 pain. Report received from: Darling in the ED @[id number].
--- NOTE | 2025-09-16 22:24 | W.SURGCON ---
Date of service: 09/16/25 Time of Service: 17:30 Assessment and Plan Assessment and plan (1) Perforation of sigmoid colon due to diverticulitis: Status: Acute Assessment and plan: Persistent severe diverticulitis despite approximately 1 month of antibiotics. Diverticulitis with signs of microperforation on CAT scan. Is not clear to me if this is residual from his prior incident in July or if this is new microperforation. There is no associated abscess and there is no free fluid. No peritonitis on examination and no indication for emergent surgical intervention and diversion. Patient is unable to eat and drink comfortably from the severity of his persistent disease. Sigmoidectomy is indicated, however it is ideal to avoid colostomy and the need for colostomy takedown in the future. Since he has failed outpatient oral antibiotics I recommend he be admitted to the hospital for IV antibiotics, strict bowel rest, and IV fluids. I recommend a conservative approach to advancing his diet, and a conservative approach to transitioning back to oral antibiotics. If he can get through this episode then the ideal course of care would include a colonoscopy in approximately 6 weeks followed by sigmoidectomy. If his condition worsens, he does not improve, or he develops secondary signs of failure including renal failure then I would recommend proceeding with a colectomy and colostomy during this hospitalization. We discussed C. difficile risk, and it may be helpful to start probiotics once he is taking things by mouth again. Discussed the treatment plan including admission to the hospital, strict n.p.o. except ice chips, and IV Zosyn with the patient and his partner. Overall his diverticulitis appears less severe than it did in July ct but it is persistent and severe with small bubbles of pneumoperitoneum. I think there is a good chance we can get him through this without colostomy, but it will require the most conservative approach. I recommend DVT chemoprophylaxis for him despite his hesitation about due to discomfort. He is agreeable. Hospitalist to admit. Surgery will follow. History of Present Illness History of Present Illness Chief Complaint: diverticulitis w microperforation Narrative: 44-year-old male with diverticulitis with microperforation. He presented to the emergency department today with central low abdominal pain that is persistent and nonresolving. He has been having this pain for over a month now. Overall the pain has improved slightly compared to his inpatient stay in July, however every time he eats or drinks or has a bowel movement, he has increasing pain and discomfort. His progress has stalled. After he discharged from the hospital last month he felt really well for approximately a week. By the time he completed 14 days of cefpodoxime and Flagyl, he developed severe abdominal pain chills and other symptoms again within 24 hours. He saw his primary care physician who prescribed him a second round of 2 weeks of oral antibiotics, clindamycin and ciprofloxacin. He took those antibiotics faithfully and did not notice any additional improvement in his condition. He feels the antibiotics have been bridging him to some regular daily function, however he has not been able to return to his healthy state. He has diarrhea that is a kenyetta texture and watery texture. He does not have excessive watery or foul-smelling diarrhea. He has been taking a probiotic since he discharged from the hospital last month. He is partner is a nurse practitioner and helps to give some of the history during my assessment today. The patient experienced chills and rigors this afternoon for short period of time. He feels fatigued. PFSH All Active Problems GERD (gastroesophageal reflux disease) (Chronic) Essential hypertension (Acute) Perforation of sigmoid colon due to diverticulitis (Acute) ORA (obstructive sleep apnea) (Chronic) Umbilical hernia (Acute) Surgical History Hx of wisdom tooth extraction Social History Smoking/Tobacco Use Status: Former Tobacco Use Quit Date: 11/18/18 Smoking risk assessment performed?: Yes Alcohol Intake: current Alcohol Intake frequency: a few times a week Drug use: Daily Substance use type: marijuana Housing: house Do you feel safe at home: Yes Do you feel safe in your relationship?: Yes Exam Narrative Exam Narrative: awake, NAD eomi, MMM midline trachea, neck is symmetric PULM: normal resp effort, equal chest rise with respiration, no wheezing audible CARDIAC: normal PMI, no jvd, regular rate, normal perfusion abdomen is nondistended. deep low midline/suprapubic tenerness without peritonitis extremities are without deformity, normal movement of all four extremities speech is clear and coherent mood and affect are congruent, no focal neurological deficits skin without rash Results Last Vital Signs Temp 97.9 F 09/16/25 18:40 Pulse 71 09/16/25 18:40 Resp 18 09/16/25 18:40 BP 121/83 09/16/25 18:40 Pulse Ox 98 09/16/25 18:40 Labs 09/16/25 16:29 09/16/25 16:29 Labs: Laboratory Results - last 24 hr 09/16/25 16:29 WBC 8.49 RBC 5.16 Hgb 14.7 Hct 44.2 MCV 86 MCH 28.5 MCHC 33.3 RDW 12.3 Plt Count 288 MPV 9.2 Immature Gran % 0.5 Neutrophils % 58.5 Lymphocytes % 27.0 Monocytes % 8.2 Eosinophils % 5.1 Basophils % 0.7 Nucleated RBC % 0.0 Absolute Neutrophils 4.97 Absolute Lymphocytes 2.29 Absolute Monocytes 0.70 Absolute Eosinophils 0.43 Absolute Basophils 0.06 Sodium 137 Potassium 4.0 Chloride 100 Carbon Dioxide 28.4 Anion Gap 8.6 BUN 11 Creatinine 1.1 Est GFR (CKD-EPI 2020) 84.37 Glucose 74 Calcium 9.7 Magnesium 2.4 Total Bilirubin 0.4 AST 24 ALT 42 Alkaline Phosphatase 79 Total Protein 8.5 H Albumin 3.[address] scan report/results: report reviewed and image reviewed
[2025-09-16] MEDS: Normal Saline Flush 10 ML SYR IVP ×2 (22:42→23:06)
[2025-09-16] MEDS: PIPERACILLIN/TAZO 3.375 GM in Normal Saline 50 ML IVPB (22:43)
[2025-09-16] MEDS: Ondansetron 4 MG/2 ML VIAL IVP (23:05)
[2025-09-16] MEDS: Zolpidem 5 MG TAB PO (23:06)
[2025-09-17] MEDS: Normal Saline 1,000 ML 150 ML IV ×2 (01:35→09:14)
[2025-09-17] MEDS: PIPERACILLIN/TAZO 3.375 GM in Normal Saline 50 ML IVPB ×4 (05:38→22:26)
[2025-09-17 06:25] VITALS: BP 117/76; PULSE 69; RESP 16; TEMP 36.9; O2SAT 95
--- NOTE | 2025-09-17 06:51 | TELEFU_ITS ---
Date of service: 09/17/25 Time of Service: 06:51 Nutrition Note NOTE: Full Nutrition Assessment to follow. We do not have Nutren 1.5. We have Nutren 2.0. To reduce Nutren 2.0 to a 1.5, each bolus will be 160 ml of Nutren 2.0 and 80 ml of water. This ratio is for the bolus only. He should still receive water flushes as ordered. Slim Robles RD, [facility] will be providing his nutritional assessment and care plan. Time Spent in Nutritional Counseling and Treatment: 15
[2025-09-17 06:52] LABS: Abs Immature Grans 0.03 10^3/uL (0.0-0.06); HCT 39.6 % (40.0-50.0); HGB 13.0 g/dL (13.5-17.5); Immature Grans % 0.4 %; MCH 27.9 pg (27.0-33.0); MCHC 32.8 % (32.0-36.0); MCV 85 fL (80-95); MPV 9.5 fL (8.0-11.0); Platelet Count 241 10^3/uL (130-400); RBC 4.66 10^6/uL (4.36-5.78); RDW 12.4 % (11.8-14.1); RDW-SD 38.0 fL; WBC 7.34 10^3/uL (4.4-10.8)
[2025-09-17 07:08] LABS: ALT 31 U/L (16-63); AST 20 U/L (15-37); Albumin 3.0 g/dL (3.4-5.0); Alkaline Phosphatase 70 U/L (46-116); Anion Gap 10.0 mmol/L (3-11); BUN 13 mg/dL (7-18); Bilirubin, Total 0.5 mg/dL (0.2-1.0); CO2 26.0 mmol/L (21.0-32.0); Calcium 8.6 mg/dL (8.5-10.1); Chloride 105 mmol/L (98-107); Glucose 87 mg/dL (74-106); Potassium 4.1 mmol/L (3.5-5.1); Sodium 141 mmol/L (136-145); Total Protein 6.9 g/dL (6.4-8.2)
--- NOTE | 2025-09-17 07:34 | INITIAL_ITS ---
Date of service: 09/17/25 Time of Service: 07:49 Care Management Initial Assmt Initial Assessment Reason for Hospitalization: Diverticulitis Functional Status/Living Situation Patient Presentation: Saad (who prefers to go by Dieter) was awake and lying in bed when CM met with him. Dieter was admitted 08/15/25 for Perforation of sigmoid colon due to diverticulitis and treated medically then discharged 08/16/25. He was able to return to work s/p working from home 2 days and did not feel the need to take a scheduled leave off work from previous anticipate hernia surgery. He presented to the Emergency Department for evaluation of abdominal pain yesterday evening. Per report, Dieter had a surgical consult last night who is following him closely (see documentation). Dieter is n.p.o but can have ice chips. Per report, anticipate he will receive IV antibiotics for 1 week and will continue to be followed by surgical. Dieter and his , Radha, were both pleasant and willing to engage in c onversation. Radha expresses understanding of Dieter's current situation. Dieter reports he is feeling better and still trying to rest his colon. Dieter shares he resides in [place] with Radha. Both Dieter and Radha are employed, independent at baseline, and drive. Dieter will need a work note to be provided prior to discharge. He reported that he is not currently utilizing any community services and does not feel he has a need for them at this time. CM will continue to follow. Town of Residence: [place] Resides with: Spouse (Radha - tabulating clerk) Significant Other/Family: Local Natural Supports: family, friends Employment Status: Employed Instrumental Activities of Daily Living (ADLs): Independent Activities/Hobbies/SocialSupport: Enjoys watching hockey Medications Medication Management: No Issues/Barriers identified Advance Directives Advance Directives: Do you have an Advance Directive: N , 10:32 AD On File at [facility]: N 08/13/25, 10:32 Date Asked 09/16/25 09/16/25, 15:32 AD Date Reviewed COLST On File at [facility] No 08/14/25, 21:02 COLST Date Scanned Code Status Resuscitation Status Full Code Portal Pt does not currently have a portal and education provided: Yes Insurance Coverage/Financial Issues Insurance: BC/BS of [facility] - [id number] Care Team Visit Care Team Role Provider Type Tamera Hoyt NP NURSE PRACTITIONER Briseyda Riggs Primary Care Provider NON-[facility] STAFF PHYSICIAN Jing Acosta MD Other Providers [facility] STAFF PHYSICIAN Jackson Trevizo MD Emergency Provider [facility] STAFF PHYSICIAN Varun Washington Admit Provider [facility] STAFF PHYSICIAN Attending Provider Discharge Potential Discharge Needs: PCP F/U Appt and Surgical F/U Appt Anticipated Barriers to Discharge: None Identified Patient/Family Education Needs: Review discharge instructions, discuss Ask Me Three Transportation: Private vehicle Plan: Anticipate Dieter will be discharged home once medically ready. No new services are indicated at this time. It is recommended that Dieter follow up with his community providers, surgical team and continue per his discharge plan of care. Dieter will require a work note prior to d/c. He will be transported via private vehicle by his . CM will follow. Social Determinants of Health Screening Will the Patient Participate in the Screening?: Declined to provide Do you worry about having a steady place to live?: no PFSH All Active Problems GERD (gastroesophageal reflux disease) (Chronic) Essential hypertension (Acute) Perforation of sigmoid colon due to diverticulitis (Acute) ORA (obstructive sleep apnea) (Chronic) Umbilical hernia (Acute) Surgical History Hx of wisdom tooth extraction Social History Smoking/Tobacco Use Status: Former Tobacco Use Quit Date: 11/18/18 Smoking risk assessment performed?: Yes Alcohol Intake: current Alcohol Intake frequency: a few times a week Drug use: Daily Substance use type: marijuana Housing: house Do you feel safe at home: Yes Do you feel safe in your relationship?: Yes Readmission Within the Past 30 Days Yes or No: No
[2025-09-17] MEDS: Normal Saline Flush 10 ML SYR IVP ×4 (08:26→22:27)
[2025-09-17] MEDS: Pantoprazole 40 MG VIAL IVP (08:27)
--- NOTE | 2025-09-17 09:04 | W.PM.PROGNOT ---
Date of Service Date of service: 09/17/25 Time of Service: 09:04 Assessment and Plan Assessment and plan (1) Perforation of sigmoid colon due to diverticulitis: Status: Acute Assessment and plan: Continue with NPO (may have ice chips), IV Zosyn. Encouraged ambulation, sitting in the chair and activity OOB throughout the day. Both Dieter and his are aware of the plan in pursuing medical management at this time in an effort to avoid having surgery at this time. Currently his pain is well controlled and he does not have any complaints or concerns. Subjective Subjective Interval history since last seen: Arrive with patient reporting that he is hungry this morning. He denies having any pain at this time. Denies any fevers, chills or night sweats. Exam Const General: cooperative, healthy appearing and comfortable Orientation: alert and oriented x3 Resp Effort & Inspection: normal respiratory effort, no audible wheezes and no cough GI Inspection: normal to inspection Palpation: soft, no guarding, hernia (umbilical noted) and nontender Objective Last Vital Signs Temp 36.9 C 09/17/25 06:25 Pulse 69 09/17/25 06:25 Resp 16 09/17/25 06:25 BP 117/76 09/17/25 06:25 Pulse Ox 95 09/17/25 06:25 Laboratory Results - last 24 hr 09/16/25 09/17/25 16:29 06:23 WBC 8.49 7.34 RBC 5.16 4.66 Hgb 14.7 13.0 L Hct 44.2 39.6 L MCV 86 85 MCH 28.5 27.9 MCHC 33.3 32.8 RDW 12.3 12.4 Plt Count 288 241 MPV 9.2 9.5 Immature Gran % 0.5 0.4 Neutrophils % 58.5 61.9 Lymphocytes % 27.0 23.0 Monocytes % 8.2 8.7 Eosinophils % 5.1 5.2 Basophils % 0.7 0.8 Nucleated RBC % 0.0 0.0 Absolute Neutrophils 4.97 4.54 Absolute Lymphocytes 2.29 1.69 Absolute Monocytes 0.70 0.64 Absolute Eosinophils 0.43 0.38 Absolute Basophils 0.06 0.06 Sodium 137 141 Potassium 4.0 4.1 Chloride 100 105 Carbon Dioxide 28.4 26.0 Anion Gap 8.6 10.0 BUN 11 13 Creatinine 1.1 1.0 Est GFR (CKD-EPI 2020) 84.37 94.59 Glucose 74 87 Calcium 9.7 8.6 Magnesium 2.4 Total Bilirubin 0.4 0.5 AST 24 20 ALT 42 31 Alkaline Phosphatase 79 70 Total Protein 8.5 H 6.9 Albumin 3.9 3.0 L Time Spent with Patient Time Spent with Patient: <25 minutes Time was spent: preparing to see the patient(eg.review tests), obtaining and/or reviewing separately otained hiistory and counseling the patient
--- NOTE | 2025-09-17 11:16 | RESPIRATORY ---
Spoke with patient about ORA diagnosis and patient advised he has never had a sleep study or NIV machine
--- NOTE | 2025-09-17 11:17 | RESPIRATORY ---
Spoke with patient about ORA diagnosis and patient advised he has never had a sleep study or a NIV machine
[2025-09-17] MEDS: Enoxaparin 40 MG/0.4 ML SYR SC (13:44)
--- NOTE | 2025-09-17 14:57 | CHAPLAIN ---
Dieter is here on bowel rest so NPO for now. His Radha is with him. They live in [place] and are members of a buddhism there. Their deep fat cook fry has already been here today to visit. Radha is a personnel psychologist specializing in addiction issues. Dieter works at the [employer] in [place]. They are both pleasant and easily engage in conversation.
[2025-09-17 15:39] LABS: EPI 027-NAP1-B1 PRESUMPTIVE NEGATIVE
--- NOTE | 2025-09-17 15:52 | PGE_ITS ---
Date of Service Date of service: 09/17/25 Time of Service: 15:52 Assessment and Plan Assessment and plan (1) Perforation of sigmoid colon due to diverticulitis: Status: Acute Assessment and plan: patient remains hemodynamically stable and afebrile, no abdominal pain surgery consulted and following continue zosyn day 2/7 advance diet to full diet stop IV fluids (2) ORA (obstructive sleep apnea): Status: Chronic Assessment and plan: Home CPAP (3) GERD (gastroesophageal reflux disease): Status: Chronic Assessment and plan: GI prophylaxis with pantoprazole (4) Essential hypertension: Status: Acute Assessment and plan: Blood pressures are controlled continue routine monitoring discussed with DR Washington and DR Gay Subjective Subjective Patient reports: no new complaints, feels better, voiding w/o difficulty, diarrhea and afebrile; denies shortness of breath Exam Narrative Exam Narrative: Well-appearing male stated age no acute distress head is atraumatic eyes nonicteric noninjected oral mucosas moist neck full range of motion no JVD cardiovascular regular rate and rhythm respirations even and unlabored abdomen is soft nontender no guarding no masses no rebound tenderness moves all extremities equally with no peripheral edema skin is pink warm dry well-perfused nontoxic-appearing neurologic he is awake alert oriented no focal deficits psychiatric appropriate mood and affect Objective Last Vital Signs Temp 36.9 C 09/17/25 06:25 Pulse 69 09/17/25 06:25 Resp 16 09/17/25 06:25 BP 117/76 09/17/25 06:25 Pulse Ox 95 09/17/25 06:25 Laboratory Results - last 24 hr 09/16/25 09/17/25 09/17/25 16:29 06:23 13:40 WBC 8.49 7.34 RBC 5.16 4.66 Hgb 14.7 13.0 L Hct 44.2 39.6 L MCV 86 85 MCH 28.5 27.9 MCHC 33.3 32.8 RDW 12.3 12.4 Plt Count 288 241 MPV 9.2 9.5 Immature Gran % 0.5 0.4 Neutrophils % 58.5 61.9 Lymphocytes % 27.0 23.0 Monocytes % 8.2 8.7 Eosinophils % 5.1 5.2 Basophils % 0.7 0.8 Nucleated RBC % 0.0 0.0 Absolute Neutrophils 4.97 4.54 Absolute Lymphocytes 2.29 1.69 Absolute Monocytes 0.70 0.64 Absolute Eosinophils 0.43 0.38 Absolute Basophils 0.06 0.06 Sodium 137 141 Potassium 4.0 4.1 Chloride 100 105 Carbon Dioxide 28.4 26.0 Anion Gap 8.6 10.0 BUN 11 13 Creatinine 1.1 1.0 Est GFR (CKD-EPI 2020) 84.37 94.59 Glucose 74 87 Calcium 9.7 8.6 Magnesium 2.4 Total Bilirubin 0.4 0.5 AST 24 20 ALT 42 31 Alkaline Phosphatase 79 70 Total Protein 8.5 H 6.9 Albumin 3.9 3.0 L Stl C.difficile Tox PCR Negative Time Spent with Patient Time Spent with Patient: 35-49 minutes Time was spent: preparing to see the patient(eg.review tests), obtaining and/or reviewing separately otained hiistory, ordering medications,tests, procedures, referring, communicating with other health reproductive healthcare assistant, indepentently interpreting results and counseling the patient
--- NOTE | 2025-09-17 16:29 | PHA.REVIEW2 ---
Pharmacy Admission Review Admission Clinical Review Admission Pharmacy Review: Essential hypertension (Acute) Perforation of sigmoid colon due to diverticulitis (Acute) No Known Allergies Allergy (Verified 09/16/25 16:02) Resuscitation Status Full Code Height 5 ft 11 in Weight 97.976 kg Pharmacy Admission Review Renal Dosing Renal Dosing: BUN 13 mg/dL (7-18) 09/17/25 06:23 Creatinine 1.0 mg/dL (0.70-1.30) 09/17/25 06:23 Medications needing adjustments: Reviewed List of meds needing interventions: CRCL>100; no adjustments needed Anticoagulation Anticoagulation: Hgb 13.0 g/dL (13.5-17.5) L 09/17/25 06:23 Hct 39.6 % (40.0-50.0) L 09/17/25 06:23 Plt Count 241 10^3/uL (130-400) 09/17/25 06:23 Creatinine 1.0 mg/dL (0.70-1.30) 09/17/25 06:23 DVT Prophylaxis: Reviewed Medications: Enoxaparin Opiate Usage Evaluate Pain Scale/Pains Meds: N/A Relevant Labs Relevant Labs: Sodium 141 mmol/L (136-145) 09/17/25 06:23 Potassium 4.1 mmol/L (3.5-5.1) 09/17/25 06:23 Chloride 105 mmol/L (98-107) 09/17/25 06:23 Magnesium 2.4 mg/dL (1.8-2.4) 09/16/25 16:29 Electrolytes, C-Reactive P, ESR: Reviewed DM Control DM Control: Reviewed Cardiac Review Cardiac Review: rv=092/76; hr=69 BP, HR, EF%: N/A IV to PO Switch IV Medications: Reviewed Home Meds Home Med List reviewed: Reviewed Pharmacy Antibiotic Review Pharmacy Antibiotic Activity: 48 hour review Comments: zosyn day 2/10 antibiotics for performated sigmoid colon. will stepdown to augmentin upon discharge.
--- NOTE | 2025-09-17 18:33 | PGE_ITS ---
Date of Service Date of service: 09/17/25 Time of Service: 18:34 Assessment and Plan Assessment and plan (1) Perforation of sigmoid colon due to diverticulitis: Status: Acute Assessment and plan: We reviewed his CAT scan from this admission, and compared to his previous, and obviously there is quite a bit of improvement. However it certainly concerning that he has had ongoing abdominal complaints since his hospitalization at the end of July. Certainly, I do think he benefit from sigmoid colectomy as this is significantly impacting his quality of life at this point. It would be nice to try to get him through the acute inflammation however in an effort to minimize the likelihood of resection and primary anastomosis without an ostomy. Since his symptoms are improved today, I think it is reasonable to give him some liquids and see how he tolerates that. Will repeat the CBC tomorrow, and see how this evolves over the next few days. Subjective Subjective Interval history since last seen: Saad says he is feeling much better compared to when he came in yesterday. He is hungry today. His pain is better controlled this afternoon. Exam GI Other: Abdomen is soft, not very distended, and only minimally tender to deep palpation. Mostly in the supra pubic area Objective Last Vital Signs Temp 98.4 F 09/17/25 06:25 Pulse 69 09/17/25 06:25 Resp 16 09/17/25 06:25 BP 117/76 09/17/25 06:25 Pulse Ox 95 09/17/25 06:25 Laboratory Results - last 24 hr 09/17/25 09/17/25 06:23 13:40 WBC 7.34 RBC 4.66 Hgb 13.0 L Hct 39.6 L MCV 85 MCH 27.9 MCHC 32.8 RDW 12.4 Plt Count 241 MPV 9.5 Immature Gran % 0.4 Neutrophils % 61.9 Lymphocytes % 23.0 Monocytes % 8.7 Eosinophils % 5.2 Basophils % 0.8 Nucleated RBC % 0.0 Absolute Neutrophils 4.54 Absolute Lymphocytes 1.69 Absolute Monocytes 0.64 Absolute Eosinophils 0.38 Absolute Basophils 0.06 Sodium 141 Potassium 4.1 Chloride 105 Carbon Dioxide 26.0 Anion Gap 10.0 BUN 13 Creatinine 1.0 Est GFR (CKD-EPI 2020) 94.59 Glucose 87 Calcium 8.6 Total Bilirubin 0.5 AST 20 ALT 31 Alkaline Phosphatase 70 Total Protein 6.9 Albumin 3.0 L Stl C.difficile Tox PCR Negative Time Spent with Patient Time Spent with Patient: >50 minutes Time was spent: preparing to see the patient(eg.review tests), obtaining and/or reviewing separately otained hiistory, referring, communicating with other health senior resident care director, indepentently interpreting results and counseling the patient
[2025-09-17 19:20] VITALS: BP 137/90; PULSE 72; RESP 16; TEMP 36.7; O2SAT 96
[2025-09-17] MEDS: Zolpidem 5 MG TAB PO (22:25)
[2025-09-18] MEDS: PIPERACILLIN/TAZO 3.375 GM in Normal Saline 50 ML IVPB ×4 (05:03→22:59)
[2025-09-18] MEDS: Normal Saline Flush 10 ML SYR IVP ×3 (05:04→22:59)
[2025-09-18 06:55] LABS: Abs Immature Grans 0.04 10^3/uL (0.0-0.06); HCT 40.0 % (40.0-50.0); HGB 13.2 g/dL (13.5-17.5); Immature Grans % 0.6 %; MCH 27.7 pg (27.0-33.0); MCHC 33.0 % (32.0-36.0); MCV 84 fL (80-95); MPV 9.2 fL (8.0-11.0); Platelet Count 261 10^3/uL (130-400); RBC 4.76 10^6/uL (4.36-5.78); RDW 12.0 % (11.8-14.1); RDW-SD 37.2 fL; WBC 6.58 10^3/uL (4.4-10.8)
[2025-09-18 07:29] LABS: ALT 29 U/L (16-63); AST 16 U/L (15-37); Albumin 3.1 g/dL (3.4-5.0); Alkaline Phosphatase 70 U/L (46-116); Anion Gap 8.2 mmol/L (3-11); BUN 9 mg/dL (7-18); Bilirubin, Total 0.4 mg/dL (0.2-1.0); CO2 27.8 mmol/L (21.0-32.0); Calcium 8.8 mg/dL (8.5-10.1); Chloride 105 mmol/L (98-107); Glucose 80 mg/dL (74-106); Potassium 3.9 mmol/L (3.5-5.1); Sodium 141 mmol/L (136-145); Total Protein 7.1 g/dL (6.4-8.2)
[2025-09-18 08:39] VITALS: BP 122/95; PULSE 71; RESP 16; TEMP 36.8; O2SAT 98
[2025-09-18] MEDS: Enoxaparin 40 MG/0.4 ML SYR SC (08:41)
[2025-09-18] MEDS: Pantoprazole 40 MG VIAL IVP (08:42)
--- NOTE | 2025-09-18 10:37 | PGE_ITS ---
Date of Service Date of service: 09/18/25 Time of Service: 10:37 Assessment and Plan Assessment and plan (1) Perforation of sigmoid colon due to diverticulitis: Status: Acute Assessment and plan: I do find it reassuring that his vital signs are all normal, and his labs show no significant change since institution of full liquids. I think it is reasonable to trial a short course of mesalamine to see if that helps with any segmental colitis associated with his diverticulitis. Will start that today, and keep him on full liquids and intravenous antibiotics. We can reassess over the next 24 hours or so, and hopefully transition to home with a short interval to try to get him through the acute inflammation phase. Subjective Subjective Interval history since last seen: Saad looks very good this morning. He is up and walking around. He tells me that this is usually the time of day where his pain is most intense, but it seems far better compared to those other episodes. He was able to tolerate full liquids last night without any nausea or vomiting. Exam GI Other: Abdomen is soft, nondistended, not really tender. There is no guarding Objective Last Vital Signs Temp 98.2 F 09/18/25 08:39 Pulse 71 09/18/25 08:39 Resp 16 09/18/25 08:39 BP 122/95 H 09/18/25 08:39 Pulse Ox 98 09/18/25 08:39 Laboratory Results - last 24 hr 09/17/25 09/18/25 13:40 06:05 WBC 6.58 RBC 4.76 Hgb 13.2 L Hct 40.0 MCV 84 MCH 27.7 MCHC 33.0 RDW 12.0 Plt Count 261 MPV 9.2 Immature Gran % 0.6 Neutrophils % 54.2 Lymphocytes % 30.1 Monocytes % 8.5 Eosinophils % 5.8 Basophils % 0.8 Nucleated RBC % 0.0 Absolute Neutrophils 3.57 Absolute Lymphocytes 1.98 Absolute Monocytes 0.56 Absolute Eosinophils 0.38 Absolute Basophils 0.05 Sodium 141 Potassium 3.9 Chloride 105 Carbon Dioxide 27.8 Anion Gap 8.2 BUN 9 Creatinine 1.0 Est GFR (CKD-EPI 2020) 94.59 Glucose 80 Calcium 8.8 Total Bilirubin 0.4 AST 16 ALT 29 Alkaline Phosphatase 70 Total Protein 7.1 Albumin 3.1 L Stl C.difficile Tox PCR Negative Time Spent with Patient Time Spent with Patient: 25-34 minutes Time was spent: preparing to see the patient(eg.review tests), ordering medications,tests, procedures, referring, communicating with other health patient care nursing assistant, indepentently interpreting results and counseling the patient
[2025-09-18] MEDS: Mesalamine 1.2 GM TABCR 2.4 GM PO (11:42)
--- NOTE | 2025-09-18 13:51 | W.PM.PROGNOT ---
Date of Service Date of service: 09/18/25 Time of Service: 13:51 Assessment and Plan Assessment and plan (1) Perforation of sigmoid colon due to diverticulitis: Status: Acute Assessment and plan: patient remains hemodynamically stable and afebrile, minimal abdominal pain this am while stooling, now resolved surgery following continue zosyn day 01/25 tolerating full liquid diet stable off IV fluids (2) ORA (obstructive sleep apnea): Status: Chronic Assessment and plan: Home CPAP (3) GERD (gastroesophageal reflux disease): Status: Chronic Assessment and plan: GI prophylaxis with pantoprazole (4) Essential hypertension: Status: Acute Assessment and plan: Blood pressures are controlled continue routine monitoring discussed with DR Washington Subjective Subjective Patient reports: no new complaints, feels better, pain is less, bowel movement (formed, reported some abd discomfort which as since resolved) and afebrile Exam Narrative Exam Narrative: Well-appearing male no acute distress eyes nonicteric noninjected oral mucosas moist skin pink warm dry and well perfused, respirations even and unlabored abdomen is soft moves all extremities equally awake alert oriented no focal deficits psychiatric appropriate mood and affect Objective Last Vital Signs Temp 36.8 C 09/18/25 08:39 Pulse 71 09/18/25 08:39 Resp 16 09/18/25 08:39 BP 122/95 H 09/18/25 08:39 Pulse Ox 98 09/18/25 08:39 Laboratory Results - last 24 hr 09/17/25 09/18/25 13:40 06:05 WBC 6.58 RBC 4.76 Hgb 13.2 L Hct 40.0 MCV 84 MCH 27.7 MCHC 33.0 RDW 12.0 Plt Count 261 MPV 9.2 Immature Gran % 0.6 Neutrophils % 54.2 Lymphocytes % 30.1 Monocytes % 8.5 Eosinophils % 5.8 Basophils % 0.8 Nucleated RBC % 0.0 Absolute Neutrophils 3.57 Absolute Lymphocytes 1.98 Absolute Monocytes 0.56 Absolute Eosinophils 0.38 Absolute Basophils 0.05 Sodium 141 Potassium 3.9 Chloride 105 Carbon Dioxide 27.8 Anion Gap 8.2 BUN 9 Creatinine 1.0 Est GFR (CKD-EPI 2020) 94.59 Glucose 80 Calcium 8.8 Total Bilirubin 0.4 AST 16 ALT 29 Alkaline Phosphatase 70 Total Protein 7.1 Albumin 3.1 L Stl C.difficile Tox PCR Negative Time Spent with Patient Time Spent with Patient: 35-49 minutes Time was spent: preparing to see the patient(eg.review tests), obtaining and/or reviewing separately otained hiistory, ordering medications,tests, procedures, indepentently interpreting results and counseling the patient
[2025-09-18 23:09] VITALS: BP 131/87; PULSE 71; RESP 20; TEMP 36.9; O2SAT 94
[2025-09-18] MEDS: Zolpidem 5 MG TAB PO (23:12)
[2025-09-19] MEDS: PIPERACILLIN/TAZO 3.375 GM in Normal Saline 50 ML IVPB ×4 (05:13→17:36)
[2025-09-19] MEDS: Normal Saline Flush 10 ML SYR IVP ×6 (05:16→21:23)
[2025-09-19 07:01] VITALS: BP 120/88; PULSE 83; RESP 16; TEMP 36.6; O2SAT 98
[2025-09-19] MEDS: Pantoprazole 40 MG VIAL IVP (08:15)
[2025-09-19] MEDS: Enoxaparin 40 MG/0.4 ML SYR SC (08:16)
[2025-09-19] MEDS: Mesalamine 1.2 GM TABCR 2.4 GM PO (08:16)
--- NOTE | 2025-09-19 10:19 | W.PM.PROGNOT ---
Date of Service Date of service: 09/19/25 Time of Service: 10:20 Assessment and Plan Assessment and plan (1) Perforation of sigmoid colon due to diverticulitis: Status: Acute Assessment and plan: At this point, I am quite skeptical that Saad will be able to continue with this approach. He has been on several weeks of antibiotics, and continues to have pain that significantly impacts his quality of life. Although he has no systemic signs of infection at this point, I do not really think would be successful in transitioning him home, and getting him to a point where he be pain-free for an ideal elective sigmoid colectomy. Although not ideal, I think an attempt at colectomy during this hospital stay, and likely a diverting colostomy or ileostomy is probably the most reasonable approach to getting him back to good health. For today, we will continue the oral mesalamine, and see if that makes any difference. Will also plan for a bowel prep later this evening extending into tomorrow, which will give me some time to talk to Dr. Acosta to see if we can think of any other approaches. Subjective Subjective Interval history since last seen: Saad's pain came back quite a bit yesterday afternoon, associated with some flatulence and bowel movements. He was able to tolerate a little bit of some liquids, but still does not have much appetite today. Exam GI Other: Abdomen is soft, and tender in the suprapubic area. I do not appreciate any masses. Objective Last Vital Signs Temp 97.9 F 09/19/25 07:01 Pulse 83 09/19/25 07:01 Resp 16 09/19/25 07:01 BP 120/88 09/19/25 07:01 Pulse Ox 98 09/19/25 07:01 Time Spent with Patient Time Spent with Patient: 35-49 minutes Time was spent: preparing to see the patient(eg.review tests), ordering medications,tests, procedures, referring, communicating with other health district manager primary care sales, indepentently interpreting results, counseling the patient and care coordination
[2025-09-19] MEDS: Simethicone 80 MG CHEW PO (15:16)
--- NOTE | 2025-09-19 15:40 | PGE_ITS ---
Date of Service Date of service: 09/19/25 Time of Service: 15:40 Assessment and Plan Assessment and plan (1) Perforation of sigmoid colon due to diverticulitis: Status: Acute Assessment and plan: Vitals / General: Patient remains hemodynamically stable and afebrile Abdomen / GI: Minimal abdominal pain this morning with stooling, now resolved Surgery: Following Antibiotics: Continue Zosyn, day 4 of 10 Diet / Fluids: Tolerating full liquid diet; maintenance IV fluids ongoing Medications: Continue oral Mesalamine Plan: Bowel prep planned for later this evening into tomorrow; Dr Gay to discuss with Dr. Acosta regarding any alternative strategies (2) ORA (obstructive sleep apnea): Status: Chronic Assessment and plan: Home CPAP (3) GERD (gastroesophageal reflux disease): Status: Chronic Assessment and plan: GI prophylaxis with pantoprazole (4) Essential hypertension: Status: Acute Assessment and plan: Blood pressures are controlled continue routine monitoring discussed with Dr Washington and Dr Gay Subjective Subjective Patient reports: no new complaints, pain is less, tolerating liquids well, voiding w/o difficulty, flatus, bowel movement and afebrile; denies diarrhea, nausea or shortness of breath Interval history since last seen: Awake, alert; looking forward to surgery so he can get pain controlled. Aware of bowel prep tonight and agreeable. Exam Narrative Exam Narrative: General: Well-appearing, no acute distress Head: Atraumatic, normocephalic Eyes: Non-icteric, non-injected ENT: Oral mucosa moist, no lesions Neck: Supple, full ROM, no JVD Cardiovascular: Regular rate and rhythm, no murmurs/rubs/gallops Respiratory: Even, unlabored respirations; lungs clear bilaterally Abdomen: Soft, non-tender, non-distended, no guarding or rebound Extremities: Moves all extremities equally; no edema Skin: [place], warm, dry, well-perfused Neuro: Awake, alert, oriented ×3; no focal deficits Psych: Appropriate mood and affect Objective Last Vital Signs Temp 36.6 C 09/19/25 07:01 Pulse 83 09/19/25 07:01 Resp 16 09/19/25 07:01 BP 120/88 09/19/25 07:01 Pulse Ox 98 09/19/25 07:01 Time Spent with Patient Time Spent with Patient: 25-34 minutes Time was spent: preparing to see the patient(eg.review tests), ordering medications,tests, procedures, referring, communicating with other health care manager cna, indepentently interpreting results, counseling the patient and ca re coordination
[2025-09-19] MEDS: Polyethylene Glycol 3350 238 GM BTL PO (16:02)
[2025-09-19] MEDS: ACETAMINOPHEN 1,000 MG/100 ML BAG 400 MG IVPB (17:12)
[2025-09-19] MEDS: Normal Saline 1,000 ML 125 ML IV (18:41)
[2025-09-19 19:38] VITALS: BP 131/91; PULSE 78; RESP 16; TEMP 36.9; O2SAT 96
[2025-09-19] MEDS: Zolpidem 5 MG TAB PO (21:28)
[2025-09-20] VITALS (19 sets, daily range): BP systolic 113–132; BP diastolic 76–90; PULSE 73–105; RESP 0–18; TEMP 35.8–37; O2SAT 87–98; BMI 30.1
[2025-09-20] MEDS: PIPERACILLIN/TAZO 3.375 GM in Normal Saline 50 ML IVPB ×4 (00:07→18:06)
[2025-09-20] MEDS: Normal Saline 1,000 ML 125 ML IV ×3 (03:08→15:43)
[2025-09-20] MEDS: Polyethylene Glycol 3350 238 GM BTL PO (06:03)
[2025-09-20 07:21] LABS: Abs Immature Grans 0.04 10^3/uL (0.0-0.06); HCT 40.1 % (40.0-50.0); HGB 13.3 g/dL (13.5-17.5); Immature Grans % 0.5 %; MCH 27.9 pg (27.0-33.0); MCHC 33.2 % (32.0-36.0); MCV 84 fL (80-95); MPV 9.3 fL (8.0-11.0); Platelet Count 275 10^3/uL (130-400); RBC 4.76 10^6/uL (4.36-5.78); RDW 12.2 % (11.8-14.1); RDW-SD 37.3 fL; WBC 8.58 10^3/uL (4.4-10.8)
[2025-09-20 07:33] LABS: Anion Gap 9.6 mmol/L (3-11); BUN 7 mg/dL (7-18); CO2 25.4 mmol/L (21.0-32.0); Calcium 8.4 mg/dL (8.5-10.1); Chloride 105 mmol/L (98-107); Glucose 140 mg/dL (74-106); Potassium 3.4 mmol/L (3.5-5.1); Sodium 140 mmol/L (136-145)
--- NOTE | 2025-09-20 07:58 | CMPROGNOTE_ITS ---
Date of service: 09/20/25 Time of Service: 07:58 Care Management Progress Note Progress Note Text Progress Note Text: Dieter was sitting up and visiting with his when CM met with him. Per report, he will undergo a planned open procedure with sigmoidectomy and end colostomy creation today (see documentation for details). Both Dieter and Radha appeared to be in good spirits regarding the upcoming surgery, and Dieter expressed optimism about potential symptom relief. Dieter completed his Advance Directives today. Copies were provided to his PCP, the [place] Advance Directive Registry, and his family, and a copy was also added to the chart. Radha shared that she has significant prior experience with colostomy care and feels confident that they will be able to manage care successfully at home. Dieter provided his work, CM's email so that they can contact [facility] if any documentation related to work leave is needed. At this time, his employer does not require additional information. CM will continue to follow. Discharge Potential Discharge Needs: PCP F/U Appt and Surgical F/U Appt Anticipated Barriers to Discharge: None Identified Patient/Family Education Needs: Review discharge instructions, discuss Ask Me Three Transportation: Private vehicle Plan: Anticipate Dieter will be discharged home once medically ready. No new services are indicated at this time. It is recommended that Dieter follow up with his community providers, surgical team and continue per his discharge plan of care. Dieter will require a work note prior to d/c. He will be transported via private vehicle by his . CM will follow. Social Determinants of Health Screening Will the Patient Participate in the Screening?: Declined to provide Do you worry about having a steady place to live?: no
[2025-09-20] MEDS: Pantoprazole 40 MG VIAL IVP (09:25)
[2025-09-20] MEDS: Normal Saline Flush 10 ML SYR IVP ×3 (09:25→19:39)
--- NOTE | 2025-09-20 09:33 | W.PM.PROGNOT ---
Date of Service Date of service: 09/20/25 Time of Service: 09:33 Assessment and Plan Assessment and plan (1) Perforation of sigmoid colon due to diverticulitis: Status: Acute Assessment and plan: No progress on symptomatic persistent diverticulitis of sigmoid colon. He has had microperforation and has not made significant progress in terms of pain control for the last 5-6 weeks despite antibiotics. he has had mesalamine as well as IV zosyn for the last 3 days without improvement. His nutritional status is declining from poor po intake over the last month due to discomfort from eating. Unlikely that additional time on IV abx or bowel rest will improve him so we will proceed with sigmoidectomy today. Discussed planned open procedure with sigmoidectomy and end colostomy creation. Discussed procedure risks, benefits, alternatives and expectations of surgery including pain, addiction to narcotics, bleeding, infectin including skin infection or intraabd abscess, damage to bladder, ureters or other nearby structures, the need for more procedures, hernia of incision, recurrence of umbilical hernia or peristomal hernia. Discussed wound healing issues including the possible need for open wound healing. Discussed expected post operative pain and fatigue. Discussed activity restriction after surgery. Discussed reversal of colostomy in 3-6 months. Discussed alternatives including resection with anastomosis with or without diversion, ileostomy rather than colostomy, etc. Discussed the takedown operation and anticipated recovery in the future. Patient and his partner asked good questions and verbalized understanding of the plan. They feel accepting and ready to proceed. Partner is a nurse practitioner with a lot of colostomy care experience. Proceed today to surgery. Holding lovenox this morning, will resume as soon as is safe after surgery. (2) Umbilical hernia: Status: Acute (3) Essential hypertension: Status: Acute Subjective Subjective Interval history since last seen: Feels the same, pain in low midline, worse with BMs. Pain with drinking liquids yesterday. We spent 30 minutes discussing proceeding with sigmoidectomy and colostomy today. Exam Narrative Exam Narrative: awake, NAD eomi, MMM midline trachea, neck is symmetric PULM: normal resp effort, equal chest rise with respiration, no wheezing audible CARDIAC: no jvd, regular rate, normal perfusion abdomen is nondistended. extremities are without deformity, normal movement of all four extremities speech is clear and coherent mood and affect are congruent, no focal neurological deficits skin without rash Objective Last Vital Signs Temp 98.4 F 09/19/25 19:38 Pulse 78 09/19/25 19:38 Resp 16 09/19/25 19:38 BP 131/91 H 09/19/25 19:38 Pulse Ox 96 09/19/25 19:38 Laboratory Results - last 24 hr 09/20/25 06:43 WBC 8.58 RBC 4.76 Hgb 13.3 L Hct 40.1 MCV 84 MCH 27.9 MCHC 33.2 RDW 12.2 Plt Count 275 MPV 9.3 Immature Gran % 0.5 Neutrophils % 71.2 Lymphocytes % 17.1 Monocytes % 8.0 Eosinophils % 2.6 Basophils % 0.6 Nucleated RBC % 0.0 Absolute Neutrophils 6.11 Absolute Lymphocytes 1.47 Absolute Monocytes 0.69 Absolute Eosinophils 0.22 Absolute Basophils 0.05 Sodium 140 Potassium 3.4 L Chloride 105 Carbon Dioxide 25.4 Anion Gap 9.6 BUN 7 Creatinine 1.2 Est GFR (CKD-EPI 2020) 76.00 Glucose 140 H Calcium 8.4 L Time Spent with Patient Time Spent with Patient: 35-49 minutes Time was spent: preparing to see the patient(eg.review tests), referring, communicating with other health medicare compliance auditor, counseling the patient and care coordination
[2025-09-20] MEDS: POTASSIUM CHLORIDE 10 MEQ/100 ML BAG 100 MEQ IV_INF ×2 (10:26→11:31)
--- NOTE | 2025-09-20 10:26 | W.ANESPRE ---
General Info Date of Service Date Performed: 09/20/25 Height: 5 ft 11 in Weight: 97.976 kg Body Mass Index (BMI): 30.1 Surgical Procedure: Operation Date: 09/20/25 13:50 Proposed Procedure Side Surgeon p Exploratory Laparotomy Jing Acosta MD Meds Allergies and Home Medications Allergies Allergy/AdvReac Type Severity Reaction Status Date / Time No Known Allergies Allergy Verified 09/16/25 16:02 Home Medication Medication Instructions Recorded multivitamin 1 tab PO DAILY 08/12/25 ciprofloxacin HCl 500 mg tablet 500 mg PO DAILY 09/16/25 clindamycin HCl 300 mg capsule 300 mg PO Q12H 09/16/25 Current Visit Medications: Current Medications Generic Name Dose Route Start Last Admin Trade Name Freq PRN Reason Stop Dose Admin Enoxaparin Sodium 40 mg 09/17/25 13:40 09/20/25 09:24 Enoxaparin 40 Mg/0.4 Ml Syr SC Not Given DAILY MARINA Acetaminophen 1,000 mg in 100 mls @ 400 mls/hr 09/16/25 18:26 09/19/25 17:36 Ofirmev IVPB Infused Q8H PRN PRN Infusion Sodium Chloride 1,000 mls @ 125 mls/hr 09/19/25 19:00 09/20/25 03:08 Saline 1000ml Bag IV 125 mls/hr INFUSION MARINA Administration Piperacillin Sod/Tazobactam 50 mls @ 100 mls/hr 09/19/25 18:00 09/20/25 06:37 Sod 3.375 gm/ Sodium Chloride IVPB Infused Q6H MARINA Infusion Potassium Chloride 10 meq in 100 mls @ 100 mls/hr 09/20/25 09:30 IV_INF 09/20/25 11:29 Q1H MARINA IV Miscellaneous Supplies 1 each 09/16/25 16:15 Iv Access IV DIRECTED MARINA IV Miscellaneous Supplies 1 each 09/19/25 10:15 Iv Access IV DIRECTED MARINA Ketorolac Tromethamine 15 mg 09/16/25 18:26 Ketorolac 15 Mg/Ml Vial IVP 09/21/25 18:25 Q6H PRN PRN Melatonin 3 mg 09/16/25 18:59 Melatonin 3 Mg Tab PO HS PRN PRN Insomnia Mesalamine 2.4 gm 09/18/25 10:00 09/20/25 09:24 Mesalamine 1.2 Gm Tabcr PO Not Given DAILY MARINA Ondansetron HCl 4 mg 09/16/25 18:26 09/16/25 23:05 Ondansetron 4 Mg/2 Ml Vial IVP 4 mg Q4H PRN PRN Administration Pantoprazole Sodium 40 mg 09/17/25 08:30 09/20/25 09:25 Pantoprazole 40 Mg Vial IVP 40 mg DAILY MARINA Administration Polyethylene Glycol 238 gm 09/19/25 10:15 09/20/25 06:03 Polyethylene Glycol 3350 238 Gm Btl PO 238 gm DIRECTED MARINA Administration Sodium Chloride 0 ml 09/16/25 16:04 09/19/25 18:42 Normal Saline Flush 10 Ml Syr IVP 20 ml PRN PRN Administration Sodium Chloride 0 ml 09/16/25 20:00 09/20/25 09:25 Normal Saline Flush 10 Ml Syr IVP 20 ml BID MARINA Administration Sodium Chloride 0 ml 09/16/25 16:04 Normal Saline 10 Ml Vial IJ DIRECTED PRN Sodium Chloride 0 ml 09/19/25 10:08 Normal Saline 10 Ml Vial IJ DIRECTED PRN Zolpidem Tartrate 5 mg 09/16/25 18:59 09/19/25 21:28 Zolpidem 5 Mg Tab PO 5 mg HS PRN MAY REPEAT X1 PRN Administration PFSH Active Problems Active Problems: Problem Status Onset Code GERD (gastroesophageal reflux disease) Chronic K21.9 Essential hypertension Acute I10 Perforation of sigmoid colon due to diverticulitis Acute K57.20 ORA (obstructive sleep apnea) Chronic G47.33 Umbilical hernia Acute K42.9 Surgical History Surgical History Hx of wisdom tooth extraction Tobacco Smoking/Tobacco Use Status: Former Tobacco Use Passive smoking exposure: No Alcohol Alcohol Intake: current Alcohol intake frequency: a few times a week Substance Use Substance use: Daily Substance use type: marijuana Vital Signs and Lab Results Vital Signs Most Recent Vital Signs in EMR: Most Recent Vital Signs Temp Pulse Resp BP Pulse Ox 36.9 C 96 H 18 132/90 98 09/20/25 09:56 09/20/25 09:56 09/20/25 09:56 09/20/25 09:56 09/20/25 09:56 Point of Care Results Point of Care Results: Finger Stick Blood Glucose 85 09/16/25 23:10 Lab Results 09/20/25 06:43 09/20/25 06:43 Complete Blood Count: WBC, (4.4-10.8) 8.58 10^3/uL Today, 06:43 RBC, (4.36-5.78) 4.76 10^6/uL Today, 06:43 Hgb, (13.5-17.5) 13.3 g/dL L Today, 06:43 Hct, (40.0-50.0) 40.1 % Today, 06:43 Plt Count, (130-400) 275 10^3/uL Today, 06:43 Complete Metabolic Panel: Sodium, (136-145) 140 mmol/L Today, 06:43 Potassium, (3.5-5.1) 3.4 mmol/L L Today, 06:43 Chloride, (98-107) 105 mmol/L Today, 06:43 Carbon Dioxide, (21.0-32.0) 25.4 mmol/L Today, 06:43 BUN, (7-18) 7 mg/dL Today, 06:43 Creatinine, (0.70-1.30) 1.2 mg/dL Today, 06:43 Est GFR (CKD-EPI 2020), (mL/min/1.73m2) 76.00 Today, 06:43 Magnesium, (1.8-2.4) 2.4 mg/dL 09/16/25, 16:29 Calcium, (8.5-10.1) 8.4 mg/dL L Today, 06:43 Albumin, (3.4-5.0) 3.1 g/dL L 09/18/25, 06:05 Glucose, (74-106) 140 mg/dL H Today, 06:43 Liver Function Panel: ALT, (16-63) 29 U/L 09/18/25, 06:05 AST, (15-37) 16 U/L 09/18/25, 06:05 Anesthesia Assessment and Plan Anesthesia History Personal History: No History of General Anesthesia Family History: No Family History of Anesthesia Complications Exercise Tolerance Exercise Tolerance: Metabolic Equivalents>4 Cardiac & Pulmonary Exam Cardiac Exam: Normal S1/S2 Heart Sounds Pulmonary Exam: Clear Bilateral Breath Sounds Implantable Cardiac Device Does patient have a Pacemaker or an ICD?: No Airway Exam Known Difficult Airway: No Mallampati Class: 2 Mouth Opening: Normal (> 3cm) Thyromental Distance: Greater than 3 cm Facial Hair: Full Estrada Neck Range of Motion: Full ROM Neck Circumference: Normal Teeth Condition: Normal Dentition ASA Classification ASA Score: ASA 2 Emergency Case?: No NPO Status NPO Status: NPO Clears >2 hours, Solids >8 hours Anesthesia Plan Resuscitation Status: Full Code Anesthesia Technique: General Anesthesia Airway Planned: Endotracheal Tube Monitors Used: Standard Monitors and SedLine Preoperative Comments:: History of apnea, but no formal sleep study
--- NOTE | 2025-09-20 14:43 | W.ANESVAS ---
Midline Placement Date Performed: 09/20/25 Procedure Time: 14:24 Requesting Provider: Jing Acosta Procedure Location: Operating Room Sedation Given (Indicate Dose Given): No Sedation given Patient Mental Status: Performed under general anesthesia Sterility: Hand Hygiene, Surgical Cap, Surgical Mask, Sterile Gloves, Sterile Drape/Sheet and Chlorhexidine Laterality: Left Insertion Site: Basilic Midline Device: PowerGlide Pro 18G Catheter Length: 10 cm Midline Procedure Procedure: Vessel accessed with catheter over needle, Guidewire placed with ease, Catheter placed without resistance and Guidewire removed Dressing: Tegaderm Applied, Statlock Applied and Mastisol Used Blood Return: Present Flushes: Easily Ultrasound: Sterile probe cover and gel used Ultrasound Image Saved?: Yes Number of Attempts (See previous attempts in note section): 1 Procedure Tolerated: No Complications and Patient tolerated well Procedure Outcome: Successful Performed By: Lowell Mccray
[2025-09-20] MEDS: Bupivacaine 0.5% Pres-Free W/EPI 30 ML VIAL (15:11)
--- NOTE | 2025-09-20 16:06 | BOWEL_PTH ---
PATIENT: Saad Lawton LOC: U#:[id number] AGE/SX: 44/M ROOM: RE09/16/[address]: Bassem Gay MD : [id number] BED: A DIS: 09/23/2025 SPEC #: [id number] RECD: 09/21/25 11:14 STATUS: GUNNER RE #: [id number] PITER: 09/20/25 16:[address]: Bassem Gay DEPT: Surgical Specimen RECD BY: Anusha Live ENTERED: 09/21/25 11:15 SP TYPE: Bowel OTHR DR: MD Keely Allred Leslie Tissues: 1 - BOWEL RESECTION(OTHER) 2 - BOWEL RESECTION(OTHER) Procedures: GROSS AND MICRO LEVEL 5 Comments: [id number]
[2025-09-20] MEDS: Bupivacaine LIPOSOME/PF 133 MG/10 ML VIAL IJ (17:08)
--- NOTE | 2025-09-20 17:55 | ROE_ITS ---
Operative Note Operative Note PRE-OP DIAGNOSIS: sigmoid diverticulitis POST-OP DIAGNOSIS: other (sigmoid diverticulitis, small bowel adhesions and inflammation) umbilical hernia PROCEDURE: Open sigmoidectomy End descending colostomy small bowel resection with primary anastomosis primary repair of umbilical hernia SURGEON: Jing Acosta HUNTING AND FISHING GUIDE: Deven Dinero HUNTING AND FISHING GUIDE: Taylor Lala ANESTHESIA TYPE: Local By Surgeon and General LMA/ETT Refer to Anesthesia Record ESTIMATED BLOOD LOSS: 150 PATHOLOGY: other (1. small bowel segment. 2. sigmoid colon) COMPLICATIONS: None Procedure Description: This patient is a 44-year-old male with smoldering diverticulitis of the sigmoid colon. He failed prior treatments within the last 6 weeks including IV antibiotics and multiple oral antibiotic regimens. He was readmitted for IV antibiotics bowel rest and a trial of nonoperative treatment which he has failed. He has had no improvement in his postprandial abdominal pain, deep pelvic pain or discomfort. He has also had an increase in creatinine level today and is ready for resection. We discussed sigmoidectomy with end colostomy procedure risks and benefits and alternatives and expectations including the risks of pain, addiction to pain pills, bleeding, infection, open wound healing, damage to surrounding structures such as the ureters, and the need for more procedures. He understands colostomy reversal will be necessary in the future which involves a second operation. Informed consent was obtained and the patient was taken to the operating room from his inpatient location. He was placed supine on the operating table. SCDs were placed and all pressure points were padded appropriately. General endotracheal anesthesia was induced. Bay catheter was placed. The abdomen was clipped and prepped and draped in the usual sterile fashion. Timeout was performed. A midline periumbilical and infraumbilical incision was completed with a 10 blade scalpel. Dissection down to the fascia was done with cautery. At the umbilicus and incarcerated umbilical hernia was encountered. The hernia sac was opened at the base of the umbilical stalk and the fatty contents of the hernia reduced into the abdomen. The sac was taken down from the fascial edges removed and discarded. The fascia was opened with cautery in the midline and hand-held retractors were used to expose the left lower quadrant. The patient was rotated to the right and placed in Trendelenburg position. The sigmoid colon was noted to be densely thickened and inflamed. There was a significant amount of pericolonic induration in the midline. The thickened abnormal sigmoid colon extended into the pelvis to the peritoneal reflection, where a small amount of palpably normal rectosigmoid was identified. A segment of terminal ileum was densely adhered to the right posterior surface of the sigmoid at the site of most severe diverticulitis. It was evident that this was a site of prior microperforation or perforation that was contained. The small bowel was bluntly dissected free from where it was stuck to the sigmoid colon. The small bowel was examined and was found to be abnormally thickened, inflamed, and the serosa was damaged by the infectious and inflammatory process. Decision was made to resect this 10 cm segment of small bowel due to its suspected involvement in the patient's symptomatology and disease. The sigmoid colon was freed from the left sidewall of the abdomen abdomen along the white line of Toldt. LigaSure device was used to aid in this dissection. A sponge stick was used to push the peritoneum away from the sigmoid mesentery and sweep the sigmoid medially the ureter was identified in its expected location and was protected. The mesentery of the sigmoid colon was significantly shortened by the inflammatory process. A proximal transection point was identified in the transition between descending colon and sigmoid colon. This was completed using a CHRISTIE stapler with a bowel load. The distal transection point in the rectosigmoid junction was identified by palpation below the thickened hardened abnormal sigmoid colon. Its location was at the splaying of the tinea. The colon was isolated from the mesentery by dissecting below it using a tonsil clamp. A curved CHRISTIE stapler with a bowel load on it was used to transect the rectosigmoid junction. 2 staple firings were required to complete this. A large show LigaSure was used to transect the mesentery and remove the sigmoid colon from the abdomen. It was passed off the field as a specimen. The pelvis was packed for hemostasis. No major bleeding occurred. The segmental small bowel resection was completed on the terminal ileum segment. Normal small intestine proximal and distal to the abnormal segment was selected. A bowel load CHRISTIE stapler was used to transect the small bowel above and below the abnormal segment. The mesentery was transected using the LigaSure device. The small bowel segment was passed off the field as a specimen. A [id number] end-to-end anastomosis was created with a CHRISTIE stapler. The common enterotomy was closed with running 3-0 Vicryl. This closure was imbricated with 3-0 silk pop-off's in an interrupted [id number] fashion. The small bowel anastomosis was palpably patent and well-perfused. A crotch stitch of 3-0 silk was placed and the small bowel was returned to the abdomen. The segment of the descending colon was mobilized from the left abdominal sidewall along the white line of Toldt using cautery. This piece reached the rectus muscle for colostomy without tension. A circular piece of skin was removed from the left lower quadrant of the abdomen dissection down to the rectus sheath was done with cautery. The rectus sheath was incised and the muscle fibers of the rectus muscle split. The peritoneum was opened with cautery and dilated to 3 fingerwidths. The descending colon segment was oriented correctly and pulled through the abdominal wall to be matured as a colostomy. The midline fascia was closed with the superior and inferior #1 looped PDS suture. This closure included the prior umbilical hernia site as a primary repair. The skin was washed and dried. Exparel and bupivacaine mixture was injected into the rectus sheath and fascia along the midline incision. The skin was closed with zuhair. The midline incision was covered with a blue towel. The descending colostomy was then matured in Mariana fashion with 3-0 Vicryl sutures. The stoma was pink and viable and palpably patent below the level of the fascia. The skin was washed and dried. Stoma appliance was placed after skin protectant application. All sponge and instrument counts were correct at the end of the case. The patient tolerated the procedure well. He extubated in the operating room and transferred to the recovery room in stable condition. The Bay catheter was left in place Date of Procedure: 09/20/25
--- NOTE | 2025-09-20 18:35 | W.ANESPOSTOP ---
Postoperative Evaluation Date, Time and Location Date Performed: 09/20/25 Time Performed: 18:18 Patient Location: PACU Vital Signs Most Recent Imported Vital Signs: Most Recent Vital Signs Temp Pulse Resp BP Pulse Ox 37.0 C 93 H 15 122/87 93 09/20/25 18:34 09/20/25 18:34 09/20/25 18:34 09/20/25 18:34 09/20/25 18:34 Pain Score Most Recent Pain Score: Most Recent Pain Score Pain Level [Abdomen] 0 09/20/25 09:25 Pain Level 0 09/20/25 09:56 Assessment Mental Status: Awake (Alert & Oriented to Patient Baseline) Airway and Respiratory Function: Patent airway with normal (patient baseline) respiratory exam Cardiovascular Function: Hemodynamically Stable Hydration Status: Adequately Hydrated Nausea & Vomiting: No Nausea or Vomiting Pain: Pain is tolerable per patient Peripheral Nerve Block: Patient did not receive a nerve block
[2025-09-20] MEDS: HYDROmorphone 2 MG/ML SYR 0.5 MG IVP (20:01)
[2025-09-20] MEDS: POTASSIUM CHLORIDE/D5-0.45NACL 1,000 ML 100 MEQ IV (20:11)
[2025-09-20] MEDS: ACETAMINOPHEN 1,000 MG/100 ML BAG 400 MG IVPB (22:49)
[2025-09-20] MEDS: Ketorolac 15 MG/ML VIAL IVP (22:49)
[2025-09-20] MEDS: Zolpidem 5 MG TAB PO (22:50)
[2025-09-21] MEDS: PIPERACILLIN/TAZO 3.375 GM in Normal Saline 50 ML IVPB ×4 (00:09→18:11)
[2025-09-21] MEDS: HYDROmorphone 2 MG/ML SYR 0.5 MG IVP ×6 (03:14→22:06)
[2025-09-21 03:25] VITALS: BP 121/85; PULSE 60; RESP 17; TEMP 36.3; O2SAT 100
[2025-09-21] MEDS: ACETAMINOPHEN 1,000 MG/100 ML BAG 400 MG IVPB ×3 (05:17→18:12)
[2025-09-21] MEDS: Ketorolac 15 MG/ML VIAL IVP ×3 (05:17→18:11)
[2025-09-21 07:36] VITALS: BP 130/83; PULSE 68; RESP 17; TEMP 37.1; O2SAT 95
--- NOTE | 2025-09-21 08:05 | W.PM.PROGNOT ---
Date of Service Date of service: 09/21/25 Time of Service: 08:05 Assessment and Plan Assessment and plan (1) Perforation of sigmoid colon due to diverticulitis: Status: Acute Assessment and plan: POD #1 s/p open sigmoidectomy with end descending colostomy, small bowel resection with primary anastomosis and primary repair of umbilical hernia. Dieter is doing well today, so far tolerating full liquids. He was encouraged to proceed slowly with PO intake and to be cautious if he begins to have any N/V. Reviewed and encouraged ambulation, sitting in the chair and use of the incentive spirometer throughout the day. Colostomy Education kit was provided. Nsg and patient were notifed of the importance and need for education around Colostomy care. To ensure independence upon discharge. Today will proceed with slowly increasing PO intake, increasing activity OOB, pain control and colostomy education. (2) Umbilical hernia: Status: Acute (3) Essential hypertension: Status: Acute Subjective Subjective Interval history since last seen: Arrive with Dieter resting comfortably in bed, accompanied by his partner. They report his pain was fairly controlled through the evening. He did have some nausea without vomiting over night. He has been ambulating within the room. Exam Const General: cooperative, healthy appearing and comfortable Orientation: alert and oriented x3 Resp Effort & Inspection: normal respiratory effort, no audible wheezes and no cough GI Inspection: normal to inspection Palpation: soft, no guarding and tender Other: Colostomy Stoma- edematous, pink/purple in color. Minimal blood noted in the colostomy bag. No flatus or stool, yet. Objective Last Vital Signs Temp 37.1 C 09/21/25 07:36 Pulse 68 09/21/25 07:36 Resp 17 09/21/25 07:36 BP 130/83 09/21/25 07:36 Pulse Ox 95 09/21/25 07:36 Time Spent with Patient Time Spent with Patient: <25 minutes Time was spent: preparing to see the patient(eg.review tests), obtaining and/or reviewing separately otained hiistory and counseling the patient
[2025-09-21 08:07] LABS: HCT 38.1 % (40.0-50.0); HGB 12.7 g/dL (13.5-17.5); MCH 28.2 pg (27.0-33.0); MCHC 33.3 % (32.0-36.0); MCV 85 fL (80-95); MPV 8.9 fL (8.0-11.0); Platelet Count 306 10^3/uL (130-400); RBC 4.51 10^6/uL (4.36-5.78); RDW 12.3 % (11.8-14.1); RDW-SD 37.7 fL; WBC 11.77 10^3/uL (4.4-10.8)
[2025-09-21 08:18] LABS: Anion Gap 7.7 mmol/L (3-11); BUN 7 mg/dL (7-18); CO2 25.3 mmol/L (21.0-32.0); Calcium 8.7 mg/dL (8.5-10.1); Chloride 105 mmol/L (98-107); Glucose 148 mg/dL (74-106); Magnesium 2.2 mg/dL (1.8-2.4); Potassium 4.2 mmol/L (3.5-5.1); Sodium 138 mmol/L (136-145)
[2025-09-21 08:24] VITALS: O2SAT 97
[2025-09-21] MEDS: Lactobacillus Acidophilus CAP 1 CAP PO ×3 (08:55→19:45)
[2025-09-21] MEDS: Normal Saline Flush 10 ML SYR IVP ×6 (08:55→22:05)
[2025-09-21] MEDS: Ondansetron 4 MG/2 ML VIAL IVP ×2 (11:49→16:55)
[2025-09-21] MEDS: POTASSIUM CHLORIDE/D5-0.45NACL 1,000 ML 100 MEQ IV (16:56)
--- NOTE | 2025-09-21 17:33 | PDOC.CMPRO ---
Date of service: 09/21/25 Time of Service: 17:33 Care Management Progress Note Progress Note Text Progress Note Text: Saad was lying in bed visiting with his , Radha, when CM met with him. Radah had requested to speak with CM regarding questions she had about Saad's insurance. She inquired about next steps with his insurance, as she is aware that Saad will need continued follow up care and will likely have a reversal surgery months from now. CM suggested that Radha contact their insurance company and ask to speak to a urgent care technician/patient advocate in order to support their needs over the coming months. Radha stated that she feels Saad has had excellent care at [facility]. Saad stated that he has been up and out of bed, and they both agreed that they are motivated to get Saad home as soon as he is able. Radha stated that she does not anticipate the need for home health services, as she plans to provide any care that is needed. CM will continue to follow. Discharge Potential Discharge Needs: Surgical F/U Appt Anticipated Barriers to Discharge: None Identified Patient/Family Education Needs: Review discharge instructions, discuss Ask Me Three Transportation: Private vehicle Plan: Anticipate Dieter will be discharged home once medically ready. No new services are indicated at this time. It is recommended that Dieter follow up with his community providers, surgical team and continue per his discharge plan of care. Dieter will require a work note prior to d/c. He will be transported via private vehicle by his . CM will follow. Social Determinants of Health Screening Will the Patient Participate in the Screening?: Declined to provide Do you worry about having a steady place to live?: no
[2025-09-21 19:30] VITALS: BP 135/85; PULSE 85; RESP 18; TEMP 36.9; O2SAT 98
[2025-09-21] MEDS: Zolpidem 5 MG TAB PO (22:06)
[2025-09-22] MEDS: ACETAMINOPHEN 1,000 MG/100 ML BAG 400 MG IVPB ×2 (00:34→06:22)
[2025-09-22] MEDS: Ketorolac 15 MG/ML VIAL IVP ×4 (00:34→18:24)
[2025-09-22] MEDS: PIPERACILLIN/TAZO 3.375 GM in Normal Saline 50 ML IVPB ×4 (00:34→18:25)
[2025-09-22] MEDS: Normal Saline Flush 10 ML SYR IVP ×4 (00:35→20:20)
[2025-09-22] MEDS: POTASSIUM CHLORIDE/D5-0.45NACL 1,000 ML 100 MEQ IV (03:11)
[2025-09-22] MEDS: HYDROmorphone 2 MG/ML SYR 0.5 MG IVP ×2 (06:47→09:31)
--- NOTE | 2025-09-22 08:03 | PDOC.CMPRO ---
Date of service: 09/22/25 Time of Service: 15:36 Care Management Progress Note Progress Note Text Progress Note Text: Dieter is POD #2 today. He was sitting up in bed and accompanied by Radha when CM met with him. Dieter reports feeling good, though still experiencing some soreness. He was able to eat solid food for the first time today and reported no difficulties or complaints. Radha reports the provider explained that Dieter’s IV fluids are being discontinued today. Both Radha and Dieter are hopeful that, if his progress continues, they will soon be able to manage his care needs at home. Radha expressed concern regarding their insurance deductible and stated that she plans to contact the insurance company for clarification. She also confirmed that she and Dieter have successfully created an account for the patient portal. At Dieter’s request, a new follow-up appointment has been scheduled for October 05 at 08:30. CM will continue to follow. Discharge Potential Discharge Needs: PCP F/U Appt and Surgical F/U Appt Anticipated Barriers to Discharge: None Identified Patient/Family Education Needs: Review discharge instructions, discuss Ask Me Three Transportation: Private vehicle Plan: Anticipate Dieter will be discharged home once medically ready. No new services are indicated at this time. It is recommended that Dieter follow up with his community providers, surgical team 10/05 at 0830 and continue per his discharge plan of care. Dieter will require a work note prior to d/c. He will be transported via private vehicle by his . CM will follow. Social Determinants of Health Screening Will the Patient Participate in the Screening?: Declined to provide Do you worry about having a steady place to live?: no
[2025-09-22 08:17] VITALS: BP 141/102; PULSE 75; RESP 16; TEMP 36.6; O2SAT 96
[2025-09-22] MEDS: Enoxaparin 40 MG/0.4 ML SYR SC (08:34)
[2025-09-22] MEDS: Ondansetron 4 MG/2 ML VIAL IVP (08:34)
[2025-09-22] MEDS: Lactobacillus Acidophilus CAP 1 CAP PO ×3 (08:34→20:20)
[2025-09-22 09:45] VITALS: BP 145/92
[2025-09-22] MEDS: oxyCODONE 10 MG TAB PO ×2 (13:25→18:24)
[2025-09-22 13:40] LABS: HCT 38.3 % (40.0-50.0); HGB 12.4 g/dL (13.5-17.5); MCH 27.7 pg (27.0-33.0); MCHC 32.4 % (32.0-36.0); MCV 86 fL (80-95); MPV 9.0 fL (8.0-11.0); Platelet Count 292 10^3/uL (130-400); RBC 4.47 10^6/uL (4.36-5.78); RDW 12.4 % (11.8-14.1); RDW-SD 38.9 fL; WBC 8.78 10^3/uL (4.4-10.8)
[2025-09-22 13:54] LABS: Anion Gap 8.3 mmol/L (3-11); BUN 4 mg/dL (7-18); CO2 28.7 mmol/L (21.0-32.0); Calcium 8.6 mg/dL (8.5-10.1); Chloride 105 mmol/L (98-107); Glucose 117 mg/dL (74-106); Potassium 3.9 mmol/L (3.5-5.1); Sodium 142 mmol/L (136-145)
--- NOTE | 2025-09-22 14:56 | W.PM.PROGNOT ---
Date of Service Date of service: 09/22/25 Time of Service: 14:57 Assessment and Plan Assessment and plan (1) Perforation of sigmoid colon due to diverticulitis: Status: Acute Assessment and plan: POD #2 s/p open sigmoidectomy with end descending colostomy, small bowel resection with primary anastomosis and primary repair of umbilical hernia. He notes that he is doing well this morning with adequate pain control and tolerating full liquids. On exam his abdomen is non-tender and non-distended. Ostomy with small amount of liquid stool in the bag and gas. Will plan to remove gambino today and slowly advance diet as tolerated. Continue pain control as ordered. Continue ambulation and ostomy education (2) Umbilical hernia: Status: Acute Subjective Subjective Interval history since last seen: States he is doing well this morning. Pain controlled on current regimen. He would like the gambino out soon. He has been ambulating and tolerating full liquids. Exam Narrative Exam Narrative: General: Well appearing, no acute distress. Skin: Good turgor HEENT: Normocephalic, atraumatic CV: Regular rate Lungs: Bilateral equal chest rise, non-labored breathing Abdomen: Soft, non-tender, non-distended, midline dressing clean and intact, colostomy pink with small amount of liquid stool and gas in bag Extremities: Warm, well perfused Neurologic: No focal deficits Psychiatric: Alert and oriented, normal mood and affect Objective Last Vital Signs Temp 36.6 C 09/22/25 08:17 Pulse 75 09/22/25 08:17 Resp 16 09/22/25 08:17 BP 141/102 H 09/22/25 08:17 Pulse Ox 96 09/22/25 08:17 Laboratory Results - last 24 hr 09/22/25 13:30 WBC 8.78 RBC 4.47 Hgb 12.4 L Hct 38.3 L MCV 86 MCH 27.7 MCHC 32.4 RDW 12.4 Plt Count 292 MPV 9.0 Sodium 142 Potassium 3.9 Chloride 105 Carbon Dioxide 28.7 Anion Gap 8.3 BUN 4 L Creatinine 1.0 Est GFR (CKD-EPI 2020) 94.59 Glucose 117 H Calcium 8.6 Time Spent with Patient Time Spent with Patient: <25 minutes Time was spent: preparing to see the patient(eg.review tests), obtaining and/or reviewing separately otained hiistory and counseling the patient
[2025-09-22 19:10] VITALS: BP 127/89; PULSE 96; RESP 18; TEMP 37.2; O2SAT 95
[2025-09-22] MEDS: oxyCODONE 5 MG TAB PO (22:46)
[2025-09-23] MEDS: Ketorolac 15 MG/ML VIAL IVP ×3 (00:24→12:21)
[2025-09-23] MEDS: Normal Saline Flush 10 ML SYR IVP ×3 (00:24→08:01)
[2025-09-23] MEDS: PIPERACILLIN/TAZO 3.375 GM in Normal Saline 50 ML IVPB ×3 (00:25→12:22)
[2025-09-23] MEDS: oxyCODONE 5 MG TAB PO ×2 (05:20→11:22)
[2025-09-23 07:36] VITALS: BP 137/90; PULSE 69; RESP 14; TEMP 36; O2SAT 97
[2025-09-23] MEDS: Enoxaparin 40 MG/0.4 ML SYR SC (07:59)
[2025-09-23] MEDS: Lactobacillus Acidophilus CAP 1 CAP PO (07:59)
--- NOTE | 2025-09-23 08:26 | PDOC.CMDIS ---
Date of service: 09/23/25 Time of Service: 08:26 LACE Index Scoring Tool Questions: Length of Stay (in days): 7 - 13 Was the patient admitted via the E.D.?: Yes E.D. Visits: 2 Answers: Total Score: 10 Risk of Readmission: High Risk Care Management Discharge Plan Reason for Hospitalization: Diverticulitis Discharge Plan: Saad will be discharged home with a short supply of ostomy products. The surgical team will order outpatient ostomy supplies. Saad will follow up with the Surgical team on 10/05/25, as scheduled, and continue per his discharge plan of care. He is being driven via private vehicle with family. Patient/Family Education Needs: Review discharge instructions and plan for outpatient follow-up. Discuss ask me three.
--- NOTE | 2025-09-23 12:54 | DSE_ITS ---
Date of service: 09/23/25 Time of Service: 12:54 DS: Diagnosis Discharge Diagnosis (1) Perforation of sigmoid colon due to diverticulitis: Status: Acute (2) Umbilical hernia: Status: Acute (3) Status post colostomy: Status: Acute Discharge Plan Disposition Patient Disposition: Home Condition: Stable Discharge Details Reason For Visit: Diverticulitis Admit Date/Time: 09/16/25 16:43 Admit Provider: Bassem Gay Attending Provider: Bassem Gay Primary Care Provider: Briseyda Riggs Hospital Course Hospital Course: This is a 44-year-old male who was admitted to the hospital with persistent diverticulitis with microperforation. He had been admitted to the hospital 5 weeks prior and discharged home on oral antibiotic attics for his first episode of diverticulitis. Over the course of the next month he was on multiple different antibiotics with failure to resolve his symptoms of lower abdominal pain, difficulty eating, and difficulty defecating due to pain. He developed rigors and chills and return to the hospital after an outpatient CAT scan showed persistent diverticulitis of the sigmoid colon with some bubbles of free air. He was admitted to the hospital and put on IV fluids with strict bowel rest. He was put on IV Zosyn but failed to progress over a period of 72 hours. Decision was made to proceed to the operating room for sigmoidectomy and fecal diversion. He was taken to surgery on September 20, 2025 where he was found to have severe diverticulitis with microperforation and a segment of small bowel that was pasted to the back wall of perforated sigmoid colon. He underwent an open sigmoidectomy with descending end colostomy, and segmental small bowel resection with primary anastomosis. An umbilical hernia was primarily repaired during this operation as well. He transferred back to the medical surgical unit where he progressed through his postoperative care without complication. Diet was advanced from full liquids to regular diet since he began to have function through his colostomy. His pain was initially managed with scheduled Toradol and scheduled IV Tylenol, and as needed Dilaudid. After he regained bowel function he was put on oxycodone tablets with as needed medications available. His pain was adequately controlled and he was able to ambulate without difficulty. He was provided with ostomy care teaching by the nursing staff and demonstrated ability to empty and changes on colostomy bag during his stay. He showered without difficulty and his incisions remained clean and dry. He met all criteria for discharge. Vital signs and lab results were unremarkable and had normalized by the time of his discharge. Discharge instructions and return precautions were reviewed with the patient and his partner. Orders were placed for ostomy supplies from home. He was discharged home in stable condition. Follow-up appointment was arranged. Home Meds and New Rx's Prescriptions: New oxycodone-acetaminophen [Percocet] 5-325 mg tablet 1 tab PO Q4H PRN PRN (Reason: pain) Qty: 14 0RF ibuprofen 800 mg tablet 800 mg PO TID PRNQty: 21 0RF Discontinued clindamycin HCl 300 mg capsule 300 mg PO Q12H ciprofloxacin HCl 500 mg tablet 500 mg PO DAILY No Action multivitamin Tablet 1 tab PO DAILY Discharge Instructions Instructions: How to Care for Your Ostomy, Adult, Colectomy, Partial and Total, (DC) Additional Instructions: * Shower daily, or wash the midline incision zuhair with soapy hands, rinse, and pat dry. Keep them clean, even if it means you have to dress the site with gauze daily. Ok to air the incision out at home to help it dry out. * Dont lift/push or pull >10lb for 6 weeks total. Do not vacuum and do not switch the laundry. Ok to walk, climb stairs, and do other activities of daily life. * Do not drive for 2 weeks. * Diet as tolerated. You will learn which foods to eat and which to avoid based on your ostomy output and your preferences. Make sure to get enough protein in your daily diet. Protein energy is what you will need the most of (more than carbohydrate energy or caffeine energy). It will be the most helpful nutrient for regaining your baseline energy levels during this recovery. Fatigue is normal for 6 weeks after surgery. * Take a fiber supplement like metamucil to help get your stool texture to be soft and formed. Fiber helps with constipation and also helps with diarrhea. * Take a probiotic to help repopulate your guts normal bacteria. * Take ibuprofen along with or instead of your oxycodone prescription. Always work toward using less and discontinuing the oxycodone pain medication. Use heating pads and ice packs to help with soreness. Stretch gently and stay mobile and active with every day activities to help get yourself back to feeling normal. Call or return for fever or incisional problems. After hours or on weekends, call hospital roll or tape edge machine operator to reach a surgeon for help. See you at your follow up. Stand Alone Forms: Portal Information Activity:: as instructed Equipment/Supplies:: ostomy supplies ordered Diet:: As Tolerated Discharge Orders Discharge Orders: Discharge Order (Routine); Ordered 09/23/25 Ordered By: Jing Acosta DS: Summary Time Spent with Patient providing and/or coordinating discharge services: Greater than 30 minutes Status at Discharge Functional status at discharge: independent ambulation Overall status at discharge: patient is progressing back to baseline Mental Status: mental status grossly normal Speech and Movement: speech and movement normal Mood: congruent mood Affect: normal affect Exam Narrative Exam Narrative: awake, NAD eomi, MMM normal resp effort abd soft, nondistended, midline zuhair c/d/i. no erythema. L abdomen stoma is violaceous, gas + stool+ in bag no c/c/e speech clear and coherent Psych Mental Status: mental status grossly normal Speech and Movement: speech and movement normal Mood: congruent mood Affect: normal affect DS: Data Vitals/I&O Vitals and I&O: Vital Signs Temperature 96.8 F L 09/23/25 07:36 Temperature Source Temporal Artery Scan 09/23/25 07:36 Pulse 69 09/23/25 07:36 Pulse 93 H 09/20/25 18:20 Respiratory Rate 14 09/23/25 07:36 Blood Pressure 137/90 09/23/25 07:36 Blood Pressure Mean 105 09/23/25 07:36 Blood Pressure Position Sitting 09/16/25 16:32 Pulse Oximetry 97 09/23/25 07:36 Respiratory End-tidal CO2 39 09/20/25 18:20 Oxygen Delivery Method Room Air 09/23/25 07:36 Oxygen Flow Rate 0 09/23/25 07:36 Pain Level 5 09/23/25 12:21 Intake & Output 09/22/25 09/23/25 09/23/25 23:59 11:59 23:59 Intake Total 1360 / 3170 590 / 640 50 / 640 Output Total 1100 / 3700 Balance 260 / -530 590 / 640 50 / 640 Intake: IV 1140 / 2470 190 / 240 50 / 240 Oral 220 / 700 400 / 400 Output: Urine 1000 / 3450 Stool 100 / 250 Other: Urine Color Yellow Stool Size Small Stool Characteristics Liquid Brown Black Data Completed and Pending Pending Labs at Discharge: 09/16/25 09/17/25 09/17/25 16:29 06:23 13:40 WBC 8.49 7.34 RBC 5.16 4.66 Hgb 14.7 13.0 L Hct 44.2 39.6 L MCV 86 85 MCH 28.5 27.9 MCHC 33.3 32.8 RDW 12.3 12.4 Plt Count 288 241 MPV 9.2 9.5 Immature Gran % 0.5 0.4 Neutrophils % 58.5 61.9 Lymphocytes % 27.0 23.0 Monocytes % 8.2 8.7 Eosinophils % 5.1 5.2 Basophils % 0.7 0.8 Nucleated RBC % 0.0 0.0 Absolute Neutrophils 4.97 4.54 Absolute Lymphocytes 2.29 1.69 Absolute Monocytes 0.70 0.64 Absolute Eosinophils 0.43 0.38 Absolute Basophils 0.06 0.06 Sodium 137 141 Potassium 4.0 4.1 Chloride 100 105 Carbon Dioxide 28.4 26.0 Anion Gap 8.6 10.0 BUN 11 13 Creatinine 1.1 1.0 Est GFR (CKD-EPI 2020) 84.37 94.59 Glucose 74 87 Calcium 9.7 8.6 Magnesium 2.4 Total Bilirubin 0.4 0.5 AST 24 20 ALT 42 31 Alkaline Phosphatase 79 70 Total Protein 8.5 H 6.9 Albumin 3.9 3.0 L Stl C.difficile Tox PCR Negative 09/18/25 09/20/25 09/21/25 06:05 06:43 08:00 WBC 6.58 8.58 11.77 H RBC 4.76 4.76 4.51 Hgb 13.2 L 13.3 L 12.7 L Hct 40.0 40.1 38.1 L MCV 84 84 85 MCH 27.7 27.9 28.2 MCHC 33.0 33.2 33.3 RDW 12.0 12.2 12.3 Plt Count 261 275 306 MPV 9.2 9.3 8.9 Immature Gran % 0.6 0.5 Neutrophils % 54.2 71.2 Lymphocytes % 30.1 17.1 Monocytes % 8.5 8.0 Eosinophils % 5.8 2.6 Basophils % 0.8 0.6 Nucleated RBC % 0.0 0.0 Absolute Neutrophils 3.57 6.11 Absolute Lymphocytes 1.98 1.47 Absolute Monocytes 0.56 0.69 Absolute Eosinophils 0.38 0.22 Absolute Basophils 0.05 0.05 Sodium 141 140 138 Potassium 3.9 3.4 L 4.2 Chloride 105 105 105 Carbon Dioxide 27.8 25.4 25.3 Anion Gap 8.2 9.6 7.7 BUN 9 7 7 Creatinine 1.0 1.2 0.9 Est GFR (CKD-EPI 2020) 94.59 76.00 107.33 Glucose 80 140 H 148 H Calcium 8.8 8.4 L 8.7 Magnesium 2.2 Total Bilirubin 0.4 AST 16 ALT 29 Alkaline Phosphatase 70 Total Protein 7.1 Albumin 3.1 L Stl C.difficile Tox PCR 09/22/25 13:30 WBC 8.78 RBC 4.47 Hgb 12.4 L Hct 38.3 L MCV 86 MCH 27.7 MCHC 32.4 RDW 12.4 Plt Count 292 MPV 9.0 Immature Gran % Neutrophils % Lymphocytes % Monocytes % Eosinophils % Basophils % Nucleated RBC % Absolute Neutrophils Absolute Lymphocytes Absolute Monocytes Absolute Eosinophils Absolute Basophils Sodium 142 Potassium 3.9 Chloride 105 Carbon Dioxide 28.7 Anion Gap 8.3 BUN 4 L Creatinine 1.0 Est GFR (CKD-EPI 2020) 94.59 Glucose 117 H Calcium 8.6 Magnesium Total Bilirubin AST ALT Alkaline Phosphatase Total Protein Albumin Stl C.difficile Tox PCR PFSH All Active Problems Status post colostomy (Acute) GERD (gastroesophageal reflux disease) (Chronic) Essential hypertension (Acute) Perforation of sigmoid colon due to diverticulitis (Acute) ORA (obstructive sleep apnea) (Chronic) Umbilical hernia (Acute) Surgical History History of laparotomy (~09/20/25) Hx of wisdom tooth extraction Social History Smoking/Tobacco Use Status: Former Tobacco Use Quit Date: 11/18/18 Smoking risk assessment performed?: Yes Alcohol Intake: current Alcohol Intake frequency: a few times a week Drug use: Daily Substance use type: marijuana Housing: house Do you feel safe at home: Yes Do you feel safe in your relationship?: Yes Time Spent with Patient Time Spent with Patient: <45 minutes Time was spent: preparing to see the patient(eg.review tests), ordering medications,tests, procedures, referring, communicating with other health long term care pharmacist and counseling the patient
== END 2025-09-23 13:32 | disposition home or self-care (01) | DRG 331 ==
LOC: ER 17:23 → MS 18:32
PROVIDERS: Nurse Practitioner Acute Care; Nurse Practitioner Family; Surgery; Admitting Provider Surgery; Emergency Provider Emergency Medicine; PCP Internal Medicine; Responsible Provider Surgery; Visit Provider Surgery
PROC: 0DTN0ZZ Resection of Sigmoid Colon, Open Approach (ICD-10-PCS; CPT 49000; principal; 2025-09-20 13:30)
DX: K57.20 Diverticulitis of large intestine with perforation and abscess without bleeding (principal); G47.33 Obstructive sleep apnea (adult) (pediatric); I10 Essential (primary) hypertension; K21.9 Gastro-esophageal reflux disease without esophagitis; K42.9 Umbilical hernia without obstruction or gangrene; K66.0 Peritoneal adhesions (postprocedural) (postinfection)
CPT/HCPCS: 44143; 44120; 00123; 36415; 76942; 80048; 80053; 85027; 96365; 99285; J1650; 83735; 85025; 88307; 94760; 99222; 99231; 99232; J0131; J0666; J1100; J1171; J1805; J1885; J2003; J2250; J2404; J2405; J2470; J2543; J2704; J3010; J3480; J3490

== ENCOUNTER 2025-10-06 10:25 | Outpatient (CLI) | payer BC, SELFPAY ==
[2025-10-06 10:48] LABS: Abs Immature Grans 0.10 10^3/uL (0.0-0.06); HCT 39.0 % (40.0-50.0); HGB 13.0 g/dL (13.5-17.5); Immature Grans % 1.1 %; MCH 28.4 pg (27.0-33.0); MCHC 33.3 % (32.0-36.0); MCV 85 fL (80-95); MPV 9.2 fL (8.0-11.0); Platelet Count 289 10^3/uL (130-400); RBC 4.57 10^6/uL (4.36-5.78); RDW 12.8 % (11.8-14.1); RDW-SD 39.1 fL; WBC 8.71 10^3/uL (4.4-10.8)
[2025-10-06 11:25] LABS: ALT 27 U/L (10-49); AST 21 U/L (<34); Albumin 4.2 g/dL (3.4-5.0); Alkaline Phosphatase 77 U/L (46-116); Anion Gap 7.7 mmol/L (3-11); BUN 20 mg/dL (9-23); Bilirubin, Direct 0.1 mg/dL (<=0.3); Bilirubin, Total 0.30 mg/dL (0.2-1.2); CO2 28.3 mmol/L (20.0-31.0); Calcium 9.3 mg/dL (8.3-10.6); Chloride 105 mmol/L (98-107); Glucose 81 mg/dL (74-106); Potassium 4.3 mmol/L (3.5-5.1); Sodium 141 mmol/L (136-145); Total Protein 7.0 g/dL (5.7-8.2)
[2025-10-06 11:27] LABS: Vitamin B12 783 pg/mL (211-911)
[2025-10-06 11:28] LABS: Ferritin 318 ng/mL (11-307); Folate 13.1 ng/mL (>5.38)
[2025-10-06 12:12] LABS: Iron 67 ug/dL (65-175); Total Iron Binding Capacity 299 ug/dL (250-425)
[2025-10-07 09:19] LABS: Transferrin 231 mg/dL (201-352)
== END 2025-10-06 10:26 | disposition home or self-care (01) ==
LOC: LBO 10:25
PROVIDERS: PCP Internal Medicine; Visit Provider Surgery
DX: Z93.3 Colostomy status; Z98.890 Other specified postprocedural states; R53.83 Other fatigue
CPT/HCPCS: 36415; 80053; 80076; 82607; 82728; 82746; 83540; 83550; 84466; 85025